=== PATIENT | female | born 1930 | race Caucasian/White ===

== ENCOUNTER 2017-07-04 17:48 | Observation (INO) | payer MEDICARE, BC ==
[~2017-07-04] VITALS: Ht 162.6 cm; Wt 60.1 kg
[2017-07-04] MEDS ORDERED: IOHEXOL 350 MG/ML 10 ML VIAL (for RAD DIAG) IVCONTRAST ONE (17:49)
[2017-07-04 17:54] VITALS: BP 127/61; PULSE 94; RESP 18; TEMP 98.3; O2SAT 96
[2017-07-04] MEDS ORDERED: SODIUM CHLORIDE 0.9% FLUSH 10 ML FLUSH IVF PRN (18:15)
[2017-07-04 18:29] LABS: AUTOMATED NEUTROPHIL # 4.6 TH/MM3 (1.8-7.7); BASOPHIL # 0.1 TH/MM3 (0-0.2); BASOPHIL % 1.3 % (0.0-2.0); EOSINOPHIL # 0.2 TH/MM3 (0-0.4); EOSINOPHIL % 3.3 % (0.0-4.0); HEMATOCRIT 37.8 % (35.0-46.0); HEMO FLAGS DIFF FINAL; LYMPH % 21.7 % (9.0-44.0); LYMPHOCYTE # 1.6 TH/MM3 (1.0-4.8); MEAN CELL VOLUME 93.8 FL (80.0-100.0); MEAN CORPUSCULAR HEMOGLOBIN 32.7 PG (27.0-34.0); MEAN CORPUSCULAR HGB CONC 34.9 % (32.0-36.0); MONO % 11.7 % (0.0-8.0); PLATELET COUNT 204 TH/MM3 (150-450); RED BLOOD COUNT 4.03 MIL/MM3 (4.00-5.30); RED CELL DISTRIBUTION WIDTH 12.8 % (11.6-17.2); WHITE BLOOD COUNT 7.3 TH/MM3 (4.0-11.0)
[2017-07-04 18:44] LABS: APTT (PATIENT) 28.4 SEC (24.3-30.1); INTERNATIONAL NORMALIZED RATIO 1.2 RATIO
[2017-07-04 18:45] LABS: ALT (GPT) 24 U/L (10-53)
[2017-07-04 18:49] LABS: ALKALINE PHOSPHATASE 78 U/L (45-117); TOTAL BILIRUBIN ADULT 0.1 MG/DL (0.2-1.0)
[2017-07-04 18:54] LABS: ANION GAP 7 MEQ/L (5-15); AST (GOT) 23 U/L (15-37); BICARBONATE 29.2 MEQ/L (21.0-32.0); BLOOD UREA NITROGEN 23 MG/DL (7-18); CHLORIDE 105 MEQ/L (98-107); GLOMERULAR FILTRATION RATE 64 ML/MIN (>89); POTASSIUM 4.2 MEQ/L (3.5-5.1); SODIUM (NA) 141 MEQ/L (136-145)
--- NOTE | 2017-07-04 19:15 | PD ---
HPI Chief Complaint: Neuro Symptoms/ Deficits Time Seen by Provider: 18:05 Travel History International Travel<30 days: No Contact w/Intl Traveler<30days: No Traveled to known affect area: No History of Present Illness HPI This is an 86-year-old female who presents to the emergency department having spoken to her son normally at 4:30 PM, when he came home at 5:30 he noticed that she had left arm weakness, a facial droop and had slurred speech, constant , severe. He called the ambulance. Her symptoms persisted for at least 20 minutes with EMS and then subsided upon arrival here. She says she's never had symptoms like this before. She denies any associated headache, fevers or chills. She is otherwise healthy and takes no medicines. [facility] Past Medical History Medical History: Denies Significant Hx Influenza Vaccination: Yes Past Surgical History Surgical History: No Previous Surgery Social History Alcohol Use: No Tobacco Use: No Substance Use: No Allergies-Medications (Allergen,Severity, Reaction): Coded Allergies: No Known Allergies (Unverified , 07/04/17) Reported Meds & Prescriptions Reported Meds & Active Scripts Active No Active Prescriptions or Reported Medications Review of Systems Except as stated in HPI: all other systems reviewed are Neg Physical Exam Narrative GENERAL:Well appearing, no acute distress SKIN: Focused skin assessment warm and dry. HEAD: Atraumatic. Normocephalic. EYES: Pupils equal and round. No injection or drainage. ENT: Moist mucous membranes NECK: Trachea midline. CARDIOVASCULAR: Regular rate and rhythm. No murmur appreciated. RESPIRATORY: Clear to auscultation. Breath sounds equal bilaterally. GASTROINTESTINAL: Abdomen soft, non-tender, nondistended. MUSCULOSKELETAL: No obvious deformities. NEUROLOGICAL: Awake and alert. No obvious cranial nerve deficits. No dysarthria or aphasia. No upper or lower extremity drift. No upper extremity ataxia. Visual hodge intact. PSYCHIATRIC: Appropriate mood and affect; insight and judgment normal. Data Data Last Documented VS Vital Signs Date Time Temp Pulse Resp B/P (MAP) Pulse Ox O2 Delivery O2 Flow Rate FiO2 07/04/17 17:54 98.3 94 18 127/61 (83) 96 Orders Orders Electrocardiogram (07/04/17 18:10) Prothrombin Time / Inr (Pt) (07/04/17 18:10) Act Partial Throm Time (Ptt) (07/04/17 18:10) Complete Blood Count With Diff (07/04/17 18:10) Comprehensive Metabolic Panel (07/04/17 18:10) Troponin I (07/04/17 18:10) Ct Brain W/O Iv Contrast(Rout) (07/04/17 18:10) Cta Brain W Iv Contrast W 3d (07/04/17 18:10) Cta Neck W Iv Contrast W 3d (07/04/17 18:10) Ecg Monitoring (07/04/17 18:10) Iv Access Insert/Monitor (07/04/17 18:10) Oximetry (07/04/17 18:10) Sodium Chloride 0.9% Flush (Ns Flush) (07/04/17 18:15) Labs Laboratory Tests Test 07/04/17 18:10 White Blood Count 7.3 TH/MM3 Red Blood Count 4.03 MIL/MM3 Hemoglobin 13.2 GM/DL Hematocrit 37.8 % Mean Corpuscular Volume 93.8 FL Mean Corpuscular Hemoglobin 32.7 PG Mean Corpuscular Hemoglobin Concent 34.9 % Red Cell Distribution Width 12.8 % Platelet Count 204 TH/MM3 Mean Platelet Volume 9.1 FL Neutrophils (%) (Auto) 62.0 % Lymphocytes (%) (Auto) 21.7 % Monocytes (%) (Auto) 11.7 % Eosinophils (%) (Auto) 3.3 % Basophils (%) (Auto) 1.3 % Neutrophils # (Auto) 4.6 TH/MM3 Lymphocytes # (Auto) 1.6 TH/MM3 Monocytes # (Auto) 0.9 TH/MM3 Eosinophils # (Auto) 0.2 TH/MM3 Basophils # (Auto) 0.1 TH/MM3 CBC Comment DIFF FINAL Differential Comment Prothrombin Time 12.0 SEC Prothromb Time International Ratio 1.2 RATIO Activated Partial Thromboplast Time 28.4 SEC Blood Urea Nitrogen 23 MG/DL Creatinine 0.85 MG/DL Random Glucose 106 MG/DL Total Protein 6.3 GM/DL Albumin 3.0 GM/DL Calcium Level 8.9 MG/DL Alkaline Phosphatase 78 U/L Aspartate Amino Transf (AST/SGOT) 23 U/L Alanine Aminotransferase (ALT/SGPT) 24 U/L Total Bilirubin 0.1 MG/DL Sodium Level 141 MEQ/L Potassium Level 4.2 MEQ/L Chloride Level 105 MEQ/L Carbon Dioxide Level 29.2 MEQ/L Anion Gap 7 MEQ/L Estimat Glomerular Filtration Rate 64 ML/MIN Troponin I LESS THAN 0.02 NG/ML MDM Medical Decision Making Medical Screen Exam Complete: Yes Emergency Medical Condition: Yes Interpretation(s) EKG: Normal sinus rhythm, no ST changes No leukocytosis Electrolytes are reassuring Troponin is normal Coags are normal Differential Diagnosis Ischemic stroke, hemorrhagic stroke, TIA, seizure Narrative Course This is an 86-year-old female who presents to the emergency department having had a significant TIA symptoms on the left side prior to arrival. Here in the emergency department her symptoms completely resolved and she has an NIH stroke scale of 0. She is placed on a monitor and an IV was established. Stroke alert was not called. Labs will be obtained, CT will be obtained and patient will be admitted given high risk symptoms for neurology evaluation. Diagnosis Primary Impression: TIA (transient ischemic attack) Qualified Codes: G45.9 - Transient cerebral ischemic attack, unspecified Admitting Information Admitting Physician Requests: Admit Scripts No Active Prescriptions or Reported Meds Yanira Tony MD Jul 04, 2017 19:15
--- NOTE | 2017-07-04 19:20 | PD ---
Physical Exam Date Seen by Provider: Jul 04, 2017 Time Seen by Provider: 19:19 Narrative Accepted in transfer of care from Dr Tony @ 19:47 GENERAL: Well-developed well-nourished female in no acute distress no respiratory distress; GCS 15 SKIN: Warm and dry. HEAD: Atraumatic. Normocephalic. EYES: Pupils equal and round. No scleral icterus. No injection or drainage. ENT: No nasal bleeding or discharge. Mucous membranes pink and moist. NECK: Trachea midline. No JVD. CARDIOVASCULAR: Regular rate and rhythm. RESPIRATORY: No accessory muscle use. Clear to auscultation. Breath sounds equal bilaterally. GASTROINTESTINAL: Abdomen soft, non-tender, nondistended. Hepatic and splenic margins not palpable. MUSCULOSKELETAL: Extremities without clubbing, cyanosis, or edema. No obvious deformities. NEUROLOGICAL: Awake and alert. No obvious cranial nerve deficits. Motor grossly within normal limits. Five out of 5 muscle strength in the arms and legs. No pronator drift. No limb ataxia. Normal speech. PSYCHIATRIC: Appropriate mood and affect; insight and judgment normal. Data Data Last Documented VS Vital Signs Date Time Temp Pulse Resp B/P (MAP) Pulse Ox O2 Delivery O2 Flow Rate FiO2 07/04/17 19:30 90 20 168/70 (102) 98 Nasal Cannula 2.00 07/04/17 17:54 98.3 Orders Orders Electrocardiogram (07/04/17 18:10) Prothrombin Time / Inr (Pt) (07/04/17 18:10) Act Partial Throm Time (Ptt) (07/04/17 18:10) Complete Blood Count With Diff (07/04/17 18:10) Comprehensive Metabolic Panel (07/04/17 18:10) Troponin I (07/04/17 18:10) Ct Brain W/O Iv Contrast(Rout) (07/04/17 18:10) Cta Brain W Iv Contrast W 3d (07/04/17 18:10) Cta Neck W Iv Contrast W 3d (07/04/17 18:10) Ecg Monitoring (07/04/17 18:10) Iv Access Insert/Monitor (07/04/17 18:10) Oximetry (07/04/17 18:10) Sodium Chloride 0.9% Flush (Ns Flush) (07/04/17 18:15) Iohexol 350 Inj (Omnipaque 350 Inj) (07/04/17 17:49) Admit Order (Ed Use Only) (07/04/17 ) Sales Support Coordinator / Telemetry [id number] (07/04/17 20:20) Diet Heart Healthy (07/05/17 Breakfast) Activity Oob With Assistance (07/04/17 20:20) Notify Dr: Other (07/04/17 20:20) Labs Laboratory Tests Test 07/04/17 18:10 White Blood Count 7.3 TH/MM3 Red Blood Count 4.03 MIL/MM3 Hemoglobin 13.2 GM/DL Hematocrit 37.8 % Mean Corpuscular Volume 93.8 FL Mean Corpuscular Hemoglobin 32.7 PG Mean Corpuscular Hemoglobin Concent 34.9 % Red Cell Distribution Width 12.8 % Platelet Count 204 TH/MM3 Mean Platelet Volume 9.1 FL Neutrophils (%) (Auto) 62.0 % Lymphocytes (%) (Auto) 21.7 % Monocytes (%) (Auto) 11.7 % Eosinophils (%) (Auto) 3.3 % Basophils (%) (Auto) 1.3 % Neutrophils # (Auto) 4.6 TH/MM3 Lymphocytes # (Auto) 1.6 TH/MM3 Monocytes # (Auto) 0.9 TH/MM3 Eosinophils # (Auto) 0.2 TH/MM3 Basophils # (Auto) 0.1 TH/MM3 CBC Comment DIFF FINAL Differential Comment Prothrombin Time 12.0 SEC Prothromb Time International Ratio 1.2 RATIO Activated Partial Thromboplast Time 28.4 SEC Blood Urea Nitrogen 23 MG/DL Creatinine 0.85 MG/DL Random Glucose 106 MG/DL Total Protein 6.3 GM/DL Albumin 3.0 GM/DL Calcium Level 8.9 MG/DL Alkaline Phosphatase 78 U/L Aspartate Amino Transf (AST/SGOT) 23 U/L Alanine Aminotransferase (ALT/SGPT) 24 U/L Total Bilirubin 0.1 MG/DL Sodium Level 141 MEQ/L Potassium Level 4.2 MEQ/L Chloride Level 105 MEQ/L Carbon Dioxide Level 29.2 MEQ/L Anion Gap 7 MEQ/L Estimat Glomerular Filtration Rate 64 ML/MIN Troponin I LESS THAN 0.02 NG/ML [facility] Medical Record Reviewed: Yes Supervised Visit with NAOMI: No Interpretation(s) CBC & BMP Diagram 07/04/17 18:10 Total Protein 6.3 L, Albumin 3.0 L, Calcium Level 8.9, Alkaline Phosphatase 78, Aspartate Amino Transf (AST/SGOT) 23, Alanine Aminotransferase (ALT/SGPT) 24, Total Bilirubin 0.1 L Vital Signs Date Time Temp Pulse Resp B/P (MAP) Pulse Ox O2 Delivery O2 Flow Rate FiO2 07/04/17 19:30 90 20 168/70 (102) 98 Nasal Cannula 2.00 07/04/17 17:54 98.3 94 18 127/61 (83) 96 troponin I: 0.02, wnl Last Impressions Neck CTA [id number]/04/[id number] Signed Impressions: Service Date/Time: Tuesday, July 04, 2017 19:12 - CONCLUSION: 1. No significant luminal narrowing. 2. No evidence of dissection. Joao Mcdonald MD Head CTA [id number] Signed Impressions: Service Date/Time: Tuesday, July 04, 2017 19:12 - CONCLUSION: 1. No evidence of vessel truncation. Joao Mcdonald MD Head CT [id number] Signed Impressions: Service Date/Time: Tuesday, July 04, 2017 19:12 - CONCLUSION: 1. Age-appropriate atrophy. 2. No evidence of acute hemorrhage. Joao Mcdonald MD Differential Diagnosis Accepted in transfer of care from Dr Tony; please refer to her dictation Narrative Course Accepted in transfer of care from Dr Tony; follow up on imaging and admission for TIA @1918 [address] has [address] to [address] @[address] NIH score is 0; patient denies any complaints; senna bedside and states that she is back to her normal and her speech is normal ; patient aware of recommendation for admission for TIA; results of CT brain noncontrast and CTA [place] bolus and CTA of the neck are pending. Physician Communication Physician Communication call placed to [facility] Diagnosis Primary Impression: TIA (transient ischemic attack) Qualified Codes: G45.9 - Transient cerebral ischemic attack, unspecified Scripts No Active Prescriptions or Reported Meds Sonia Andres MD Jul 04, 2017 19:20
[2017-07-04 19:30] VITALS: BP 168/70; PULSE 90; RESP 20; O2SAT 98
--- NOTE | 2017-07-04 20:26 | RADRPT ---
EXAM DATE/TIME: 07/04/2017 19:12 [facility] COMPARISON: No previous studies available for comparison. INDICATIONS : Left sided weakness, facial droop and slurred speech. RADIATION DOSE: 56.35 CTDIvol (mGy) MEDICAL HISTORY : None SURGICAL HISTORY : None. ENCOUNTER: Initial ACUITY: 1 day PAIN SCALE: 0/10 LOCATION: cranial TECHNIQUE: Multiple contiguous axial images were obtained of the head. Using automated exposure control and adj ustment of the mA and/or kV according to patient size, radiation dose was kept as low as reasonably a chievable to obtain optimal diagnostic quality images. DICOM format image data is available electro nically for review and comparison. FINDINGS: CEREBRUM: The ventricles are normal for age. No evidence of midline shift, mass lesion, hemorrhage or acute in farction. No extra-axial fluid collections are seen. POSTERIOR FOSSA: The cerebellum and brainstem are intact. The 4th ventricle is midline. The cerebellopontine angle i s unremarkable. EXTRACRANIAL: The visualized portion of the orbits is intact. SKULL: The calvaria is intact. No evidence of skull fracture. CONCLUSION: 1. Age-appropriate atrophy. 2. No evidence of acute hemorrhage. Joao Mcdonald MD on July 04, 2017 at 20:23 Board Certified Radiologist. This report was verified electronically.
--- NOTE | 2017-07-04 20:27 | RADRPT ---
EXAM DATE/TIME: 07/04/2017 19:12 [facility] COMPARISON: No previous studies available for comparison. INDICATIONS : Patient with left sided weakness, facial droop and slurred speech. IV CONTRAST: 75 cc Omnipaque 350 (iohexol) IV RADIATION DOSE: 14.83 CTDIvol (mGy) MEDICAL HISTORY : None SURGICAL HISTORY : None. ENCOUNTER: Initial ACUITY: 1 day PAIN SCALE: 0/10 LOCATION: cranial TECHNIQUE: Volumetric scanning was performed using a multi-row detector CT scanner. The data was post processed with a variety of visualization algorithms including full volume maximum intensity projection, multi -planar sliding thin slab reformation, curved planar reformation, and surface rendering techniques. Using automated exposure control and adjustment of the mA and/or kV according to patient size, radiat ion dose was kept as low as reasonably achievable to obtain optimal diagnostic quality images. DICO M format image data is available electronically for review and comparison. FINDINGS: There is excellent visualization of the major intracranial arteries out to the second-order branch ve ssels. There is no evidence for aneurysm, vessel truncation or stenosis, and no evidence for vascula r malformation. The right posterior cerebral artery arises from the anterior circulation. Flow is seen in the anteri or communicating artery. CONCLUSION: 1. No evidence of vessel truncation. Joao Mcdonald MD on July 04, 2017 at 20:24 Board Certified Radiologist. This report was verified electronically.
--- NOTE | 2017-07-04 20:29 | RADRPT ---
EXAM DATE/TIME: 07/04/2017 19:12 [facility] COMPARISON: No previous studies available for comparison. INDICATIONS : Patient with left sided weaknes, facial droop and slurred speech. IV CONTRAST: 75 cc Omnipaque 350 (iohexol) IV RADIATION DOSE: 14.83 CTDIvol (mGy) MEDICAL HISTORY : None SURGICAL HISTORY : None. ENCOUNTER: Initial ACUITY: 1 day PAIN SCALE: 0/10 LOCATION: cranial Elevated flow velocities and ICA/CCA ratios have been found to correlate with increased degrees of vessel stenosis, calculated as percentage of diameter relative to a normal segment of distal ICA/CCA. TECHNIQUE: Volumetric scanning was performed using a multirow detector CT scanner. The data was post processed with a variety of visualization algorithms including full-volume maximum intensity projection, multip lanar sliding thin-slab reformation, curved-planar reformation, and surface-rendering techniques. Us ing automated exposure control and adjustment of the mA and/or kV according to patient size, radiatio n dose was kept as low as reasonably achievable to obtain optimal diagnostic quality images. DICOM f ormat image data is available electronically for review and comparison. FINDINGS: AORTIC ARCH: There is a three-vessel origin of the great vessels from the aorta. No evidence of ostial narrowing. RIGHT CAROTID: The common carotid artery is intact. The carotid bulb has a normal configuration without ulceration o r narrowing. The internal carotid artery lumen is smooth without stenosis. The external carotid gustavo ry is intact. Small calcification in the proximal internal carotid artery without luminal narrowing. LEFT CAROTID: The common carotid artery is intact. The carotid bulb has a normal configuration without ulceration or narrowing. The internal carotid artery lumen is smooth without stenosis. The external carotid ar layla is intact. While calcification in the carotid bulb without luminal narrowing. VERTEBRALS: The vertebral arteries have a symmetric diameter. No stenotic lesions are seen. CONCLUSION: 1. No significant luminal narrowing. 2. No evidence of dissection. Joao Mcdonald MD on July 04, 2017 at 20:25 Board Certified Radiologist. This report was verified electronically.
[2017-07-04] MEDS ORDERED: ASPIRIN 81 MG CHEW TAB CHEW ONE (21:00)
[2017-07-04] MEDS ORDERED: DEXTROSE 50% IN WATER 50 ML VIAL(D50) IV PUSH PRN (21:15)
[2017-07-04] MEDS ORDERED: GLUCAGON 1 MG/ML VIAL OTHER PRN (21:15)
[2017-07-04] MEDS ORDERED: SODIUM CHLORIDE 0.9% FLUSH 10 ML FLUSH IV FLUSH PRN (21:15)
[2017-07-04 22:53] VITALS: BP 162/74; PULSE 85; RESP 18; TEMP 98.1; O2SAT 95
[2017-07-05] VITALS (10 sets, daily range): BP systolic 133–162; BP diastolic 62–82; PULSE 68–107; RESP 18–20; TEMP 97.4–98.2; O2SAT 96–98
--- NOTE | 2017-07-05 04:03 | HHI.HP ---
[facility] Primary [facility] Physician Jenae Winters MD Admission Diagnosis TIA Diagnoses: Travel History International Travel<30 Days: No Contact w/Intl Traveler <30 Da: No Traveled to Known Affected Are: No History of Present Illness 86-year-old otherwise healthy female presents in the emergency department after having symptoms consistent with a TIA. The patient reportedly spoke to her son normally at 4:30 and when he came home at 5:30 he noticed that she had left arm weakness, facial droop and slurred speech. EMS was called and the patient's symptoms persisted for 20 minutes and then resolved. She states she's never had symptoms like this before. She does report that she had been feeling "off" for the past several days and had a chest heaviness that is now resolved. Review of Systems Denies fever or chills Denies blurry vision, otorrhea, rhinorrhea Denies sore throat and cough No chest pain, palpitations, shortness of breath No abdominal pain Denies constipation/diarrhea/nausea/vomiting Denies muscle pain/weakness No rashes Past Family Social History Past Medical History None Past Surgical History D&C Reported Medications None Allergies: Coded Allergies: No Known Allergies (Unverified , 07/04/17) Family History Mother with diabetes. Father was taken to [facility] by the [facility] when the patient was a child so she is unaware of his medical history. Social History Rare alcohol use. Denies tobacco or illicit drugs. Physical Exam Vital Signs Vital Signs Date Time Temp Pulse Resp B/P (MAP) Pulse Ox O2 Delivery O2 Flow Rate FiO2 07/05/17 01:02 97.8 75 18 160/71 (100) 97 07/04/17 22:53 98.1 85 18 162/74 (103) 95 07/04/17 21:10 07/04/17 19:30 90 20 168/70 (102) 98 Nasal Cannula 2.00 07/04/17 17:54 98.3 94 18 127/61 (83) 96 Physical Exam GENERAL: female lying in bed SKIN: No rashes, ecchymoses or lesions. Cool and dry. HEAD: Atraumatic. Normocephalic. No temporal or scalp tenderness. EYES: Pupils equal round and reactive. Extraocular motions intact. No scleral icterus. No injection or drainage. ENT: Nose without bleeding, purulent drainage or septal hematoma. Throat without erythema, tonsillar hypertrophy or exudate. Uvula midline. Airway patent. NECK: Trachea midline. No JVD or lymphadenopathy. Supple, nontender, no meningeal signs. CARDIOVASCULAR: Regular rate and rhythm without murmurs, gallops, or rubs. RESPIRATORY: Clear to auscultation. Breath sounds equal bilaterally. No wheezes , rales, or rhonchi. GASTROINTESTINAL: Abdomen soft, non-tender, nondistended. No hepato-splenomegaly , or palpable masses. No guarding. MUSCULOSKELETAL: Extremities without clubbing, cyanosis, or edema. No joint tenderness, effusion, or edema noted. No calf tenderness. Negative Homans sign bilaterally. NEUROLOGICAL: Awake and alert. Cranial nerves II through XII intact. Motor and sensory within normal limits. Five out of 5 muscle strength in all muscle groups. Normal speech. Laboratory Laboratory Tests Test 07/04/17 18:10 White Blood Count 7.3 Red Blood Count 4.03 Hemoglobin 13.2 Hematocrit 37.8 Mean Corpuscular Volume 93.8 Mean Corpuscular Hemoglobin 32.7 Mean Corpuscular Hemoglobin Concent 34.9 Red Cell Distribution Width 12.8 Platelet Count 204 Mean Platelet Volume 9.1 Neutrophils (%) (Auto) 62.0 Lymphocytes (%) (Auto) 21.7 Monocytes (%) (Auto) 11.7 Eosinophils (%) (Auto) 3.3 Basophils (%) (Auto) 1.3 Neutrophils # (Auto) 4.6 Lymphocytes # (Auto) 1.6 Monocytes # (Auto) 0.9 Eosinophils # (Auto) 0.2 Basophils # (Auto) 0.1 CBC Comment DIFF FINAL Differential Comment Prothrombin Time 12.0 Prothromb Time International Ratio 1.2 Activated Partial Thromboplast Time 28.4 Blood Urea Nitrogen 23 Creatinine 0.85 Random Glucose 106 Total Protein 6.3 Albumin 3.0 Calcium Level 8.9 Alkaline Phosphatase 78 Aspartate Amino Transf (AST/SGOT) 23 Alanine Aminotransferase (ALT/SGPT) 24 Total Bilirubin 0.1 Sodium Level 141 Potassium Level 4.2 Chloride Level 105 Carbon Dioxide Level 29.2 Anion Gap 7 Estimat Glomerular Filtration Rate 64 Troponin I LESS THAN 0.02 Result Diagram: 07/04/17180907/04/171809 Caprini VTE Risk Assessment Caprini VTE Risk Assessment: Mod/High Risk (score >= 2) Caprini Risk Assessment Model Point Value = 1 Point Value = 2 Point Value = 3 Point Value = 5 Age 41-60 Minor surgery BMI > 25 kg/m2 Swollen legs Varicose veins or History of unexplained or recurrent spontaneous Oral contraceptives or hormone replacement Sepsis (< 1 month) Serious lung disease, including pneumonia (< 1 month) Abnormal pulmonary function Acute myocardial infarction Congestive heart failure (< 1 month) History of inflammatory bowel disease Medical patient at bed rest Age 61-74 Arthroscopic surgery Major open surgery (> 45 min) Laparoscopic surgery (> 45 min) Malignancy Confined to bed (> 72 hours) Immobilizing plaster cast Central venous access Age >= 75 History of VTE Family history of VTE Factor V Leiden Prothrombin [id number] Lupus anticoagulant Anticardiolipin antibodies Elevated serum homocysteine Heparin-induced thrombocytopenia Other congenital or acquired thrombophilia Stroke (< 1 month) Elective arthroplasty Hip, pelvis, or leg fracture Acute spinal cord injury (< 1 month) Prophylaxis Regimen Total Risk Factor Score Risk Level Prophylaxis Regimen 0-1 Low Early ambulation 2 Moderate Order ONE of the following: *Sequential Compression Device (SCD) *Heparin 5000 units SQ BID 3-4 Higher Order ONE of the following medications: *Heparin 5000 units SQ TID *Enoxaparin/Lovenox 40 mg SQ daily (WT < 150 kg, CrCl > 30 mL/min) *Enoxaparin/Lovenox 30 mg SQ daily (WT < 150 kg, CrCl > 10-29 mL/min) *Enoxaparin/Lovenox 30 mg SQ BID (WT < 150 kg, CrCl > 30 mL/min) AND/OR *Sequential Compression Device (SCD) 5 or more Highest Order ONE of the following medications: *Heparin 5000 units SQ TID (Preferred with Epidurals) *Enoxaparin/Lovenox 40 mg SQ daily (WT < 150 kg, CrCl > 30 mL/min) *Enoxaparin/Lovenox 30 mg SQ daily (WT < 150 kg, CrCl > 10-29 mL/min) *Enoxaparin/Lovenox 30 mg SQ BID (WT < 150 kg, CrCl > 30 mL/min) AND *Sequential Compression Device (SCD) Assessment and Plan Assessment and Plan Assessment/plan: 1. TIA Head CT negative for acute abnormality Head CTA/neck CTA negative Echo pending MRI/MRA brain and carotid ultrasound pending Lipid profile, A1c pending Neurology consulted, appreciate recommendations Aspirin given in the ED FEN Heart healthy diet after bedside swallow evaluation Electrolytes: Monitor and replete when necessary Heparin Case discussed with ER physician at length Hiwot Savage MD Jul 05, 2017 04:03
[2017-07-05 07:20] LABS: AUTOMATED NEUTROPHIL # 5.5 TH/MM3 (1.8-7.7); BASOPHIL % 0.5 % (0.0-2.0); EOSINOPHIL # 0.1 TH/MM3 (0-0.4); EOSINOPHIL % 1.7 % (0.0-4.0); HEMATOCRIT 39.3 % (35.0-46.0); HEMO FLAGS DIFF FINAL; LYMPH % 13.5 % (9.0-44.0); MEAN CELL VOLUME 92.7 FL (80.0-100.0); MEAN CORPUSCULAR HEMOGLOBIN 32.5 PG (27.0-34.0); MONO % 10.9 % (0.0-8.0); NEUT % 73.4 % (16.0-70.0); PLATELET COUNT 211 TH/MM3 (150-450); RED BLOOD COUNT 4.23 MIL/MM3 (4.00-5.30); RED CELL DISTRIBUTION WIDTH 12.8 % (11.6-17.2); WHITE BLOOD COUNT 7.4 TH/MM3 (4.0-11.0)
[2017-07-05 07:36] LABS: ANION GAP 7 MEQ/L (5-15); BICARBONATE 27.9 MEQ/L (21.0-32.0); BLOOD UREA NITROGEN 16 MG/DL (7-18); CHLORIDE 106 MEQ/L (98-107); GLOMERULAR FILTRATION RATE 101 ML/MIN (>89); POTASSIUM 3.6 MEQ/L (3.5-5.1); SODIUM (NA) 141 MEQ/L (136-145)
[2017-07-05 07:39] LABS: HDL CHOLESTEROL 60.9 MG/DL (40.0-60.0); LDL CHOLESTEROL 145 MG/DL (0-99)
[2017-07-05] MEDS: SODIUM CHLOR 0.9% 1000 ML INJ 1,000 ML IV SCH ×2 (07:45→20:12)
[2017-07-05] MEDS: INSULIN ASPART SUPPLEMENTAL SCALE SQ SCH ×4 (08:00→20:36)
[2017-07-05] MEDS ORDERED: GADODIAMIDE PF 287 MG/ML 5 ML VIAL (for RAD MRI) IVCONTRAST ONE (08:23)
--- NOTE | 2017-07-05 09:29 | RADRPT ---
EXAM DATE/TIME: 07/05/2017 08:11 [facility] COMPARISON: No previous studies available for comparison. INDICATIONS : CVA. Episodes of left arm tingling. CONTRAST: 12 cc Omniscan (gadodiamide) IV MEDICAL HISTORY : Glaucoma. SURGICAL HISTORY : None. ENCOUNTER: Subsequent ACUITY: 2 day PAIN SCORE: 0/10 LOCATION: head. TECHNIQUE: Multiplanar, multisequence MRI of the brain was performed both prior to and following the administrat ion of paramagnetic contrast. FINDINGS: CEREBRUM: The ventricles are normal for age. No evidence of midline shift, mass lesion, hemorrhage or acute in farction. No extraaxial fluid collections are seen. The pituitary gland and suprasellar cistern are normal in configuration. WHITE MATTER: No significant signal abnormalities are seen in the white matter. POSTERIOR FOSSA: The cerebellum and brainstem are intact. The 4th ventricle is midline. The cerebellopontine angle is unremarkable. The cerebellar tonsils are normal in position. DIFFUSION IMAGING: No focal areas of restricted diffusion are seen. No evidence of acute infarction. EXTRACRANIAL: The visualized portions of the orbits and paranasal sinuses are unremarkable. POST-CONTRAST: No abnormal areas of parenchymal or dural enhancement. No evidence of blood-brain barrier breakdown. CONCLUSION: Normal examination. Blade Ponce MD on July 05, 2017 at 9:26 Board Certified Radiologist. This report was verified electronically.
--- NOTE | 2017-07-05 10:13 | RADRPT ---
EXAM DATE/TIME: 07/05/2017 08:11 [place] COMPARISON: CTA BRAIN W 3D RECON, July 04, 2017, 19:12. INDICATIONS : CVA. Episodes of left arm tingling. MEDICAL HISTORY : Glaucoma. SURGICAL HISTORY : None. ENCOUNTER: Subsequent ACUITY: 2 day PAIN SCORE: 0/10 LOCATION: head. Please note a normal MRA of the brain does not entirely exclude the possibility of a small aneurysm, nor the possibility of distal intracranial vessel disease. TECHNIQUE: 3D time of flight MRA was performed. Source images, multiplanar STS MIP, and 3D volume MIP reconstru ctions were reviewed. FINDINGS: Anterior circulation: Distal intracranial internal carotid arteries are patent with flow extending to the middle and anteri or cerebral arteries. The right A1 segment is diffusely small in caliber, likely hypoplastic. There i s no evidence for aneurysm, vessel truncation or stenosis, and no evidence for vascular malformation. Posterior circulation: Symmetric distal vertebral arteries with flow extending to basilar artery. 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 There is no evidence for aneurysm, vessel truncation or stenosis, and no evidence for vascular malformation. CONCLUSION: 1. 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 2. Otherwise, unremarkable MRA examination of the brain. Jarett Tobias MD on July 05, 2017 at 9:06 Board Certified Radiologist. This report was verified electronically.
--- NOTE | 2017-07-05 11:34 | MB ---
cc: GERARDO MANCIA M.D. DATE OF CONSULTATION: 07/05/2017 HISTORY OF PRESENT ILLNESS She is a 86-year-old right-handed woman with a remote history of thyroid problems, otherwise very healthy, does not take an aspirin a day and yesterday had some chest heaviness, some shortness of breath and then evidently she had some weakness of the left arm, some slurred speech and facial droop; by her son, although she does not remember anything about that and was brought in the hospital. A CTA of the neck and [id number] was normal as was the CAT scan of the brain did not show any acute problems. She has had some generous sized ventricles. REVIEW OF SYSTEMS She denied any hypertension, diabetes, hypercholesterolemia, NV, CABG, stent, angioplasty, atrial fibrillation, Coumadin, renal, hepatic, pulmonary disease, thyroid disease, lupus, ulcer, cancer, seizure, stroke. SOCIAL HISTORY Nonsmoker, occasionally has a drink. Lives with her son. FAMILY HISTORY Family history is negative for cancer, seizure, stroke as far as she knows. MEDICATIONS None. ALLERGIES NO KNOWN DRUG ALLERGIES. PHYSICAL EXAMINATION VITAL SIGNS: Sinus rhythm on EKG. Afebrile, 76, 18, 168/70 to 133/66. There were no carotid bruits. HEART: Regular rhythm. I do not detect a murmur. NEURO: Pupils are equal. Visual hodge are full. Extraocular movements intact without nystagmus. Face is symmetric with normal sensation. Tongue was midline. There is no drift. She had normal strength in upper and lower extremities bilaterally. Toes are downgoing bilaterally. DTRs are 1+ symmetric throughout. Pinprick was diminished on the right distal lower leg, normal on the left, normal in the hands and face. Not ataxic on [id number]. Speech is fluent. She is not aphasic. She is alert and oriented x3. She gives a good history. LABORATORY DATA CBC is normal. Basic metabolic profile was normal. LFTs normal. Troponin negative. Albumin 3. Coags were normal. IMAGING STUDIES CTA of the neck and [id number] were read as normal. CT of the brain shows generous ventricles, otherwise normal. IMPRESSION Possible TIA. Seems like from the ER report, the symptoms lasted about 20 minutes. For now I would treat her with an aspirin. Check her LDL cholesterol and get an MRI of the brain and echo and Holter. Check a few other blood tests. Overall, I thought she looked well neurologically here. Monitor her tele. If her blood work looks good, if her MRI is negative, if her echo is normal and the Holter is on, she will be discharged on 325 of aspirin a day and if her LDL is increased we could add on a statin. We will check a UA on her also. That needs to be followed up. ADDENDUM She has what appears to be an irregular dark mole on her cheek which she has been followed by dermatology but she has not seen him in several years. It could be a melanoma and I would recommend her to see dermatology at some point in the near future. I did talk to her about this. I defer to the med team on it also. MD WESLEY Zheng/DARIAN /7:42 AM /3:55 PM
[2017-07-05] MEDS: HEPARIN SODIUM - SQ 10,000 UNITS/ML VIAL SQ SCH ×3 (11:35→21:43)
[2017-07-05] MEDS: ASPIRIN EC 325 MG TABEC PO SCH (11:35)
[2017-07-05] MEDS: SODIUM CHLORIDE 0.9% FLUSH 10 ML FLUSH IV FLUSH SCH ×2 (11:35→20:43)
[2017-07-05 11:37] LABS: FREE T4 0.91 NG/DL (0.76-1.46)
[2017-07-05 12:26] LABS: BLOOD, URINE NEG (NEG); GLUCOSE,URINE NEG (NEG); KETONE, URINE NEG (NEG); NITRITE,URINE NEG (NEG); SQUAMOUS EPITHELIAL CELL URINE <1 /hpf (0-5); URINE COLOR LIGHT-YELLOW (YELLW/STRAW)
[2017-07-05 12:27] LABS: COMMENT (UR) CULT NOT INDICATED; CULTURE IF INDICATED CULT NOT INDICATED
[2017-07-05 14:20] LABS: HEMOGLOBIN A1a 1.2 %; HEMOGLOBIN A1b 1.6 %; HEMOGLOBIN Ao 85.1 %; HEMOGLOBIN LA1C 2.1 %; HEMOGLOBIN P3 3.9 %
--- NOTE | 2017-07-05 14:58 | HHI.PR ---
Subjective Remarks Follow up on patient with TIA. She was seen and examined. Patient has no complaints. States she feels well. She denies any complaints of fever, chills , headache, dizziness, numbness/tingling, weakness, nausea, vomiting, difficulty swallowing, abdominal pain, shortness of breath, or chest pain. She is voiding without any difficulties. She denies any diarrhea or constipation. She is witnessed making her bed and ambulating throughout the day in the hallway. Objective Vitals Vital Signs Date Time Temp Pulse Resp B/P (MAP) Pulse Ox O2 Delivery O2 Flow Rate FiO2 07/05/17 12:19 98.2 101 20 144/79 (100) 96 07/05/17 04:50 80 07/05/17 04:46 98.0 76 18 133/66 (88) 98 07/05/17 01:02 97.8 75 18 160/71 (100) 97 07/04/17 22:53 98.1 85 18 162/74 (103) 95 07/04/17 21:10 07/04/17 19:30 90 20 168/70 (102) 98 Nasal Cannula 2.00 07/04/17 17:54 98.3 94 18 127/61 (83) 96 I/O 07/04/17 07/04/17 07/04/17 07/05/17 07/05/17 07/05/17 07:00 15:00 23:00 07:00 15:00 23:00 Intake Total 150 ml Output Total 3 ml Balance 147 ml Intake Oral 150 ml Output Urine Total 3 ml Result Diagram: 07/05/17 0615 07/05/17 0615 Imaging Last Impressions Brain MRI 07/05/17 0745 Signed Impressions: Service Date/Time: June 08:11 - CONCLUSION: Normal examination. Blade Ponce MD Head Magnetic Resonance Angiography 07/05/17 0000 Signed Impressions: Service Date/Time: June 08:11 - CONCLUSION: 1. 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 2. Otherwise, unremarkable MRA examination of the brain. Jarett Tobias MD Neck CTA 07/04/17 1810 Signed Impressions: Service Date/Time: Tuesday, July 04, 2017 19:12 - CONCLUSION: 1. No significant luminal narrowing. 2. No evidence of dissection. Joao Mcdonald MD Head CTA 07/04/171809 Signed Impressions: Service Date/Time: Tuesday, July 04, 2017 19:12 - CONCLUSION: 1. No evidence of vessel truncation. Joao Mcdonald MD Head CT 07/04/171809 Signed Impressions: Service Date/Time: Tuesday, July 04, 2017 19:12 - CONCLUSION: 1. Age-appropriate atrophy. 2. No evidence of acute hemorrhage. Joao Mcdonald MD Objective Remarks GENERAL: Well-developed well-nourished female, INAD. Appears younger than stated age. Awake and alert. SKIN: Cool and dry. (+)dark mole on right side of face with irregular borders HEAD: Atraumatic. Normocephalic. EYES: Extraocular motions intact. No scleral icterus. No injection or drainage. ENT: Nose without bleeding or purulent drainage. Airway patent. MMM. NECK: Trachea midline. CARDIOVASCULAR: Regular rate and rhythm without murmurs, gallops, or rubs. RESPIRATORY: Clear to auscultation. Breath sounds equal bilaterally. No wheezes , rales, or rhonchi. GASTROINTESTINAL: Abdomen soft, non-tender, nondistended. No hepato-splenomegaly , or palpable masses. No guarding. MUSCULOSKELETAL: Extremities without clubbing, cyanosis, or edema. NEUROLOGICAL: Awake and alert. Able to move all extremities spontaneously. No focal neurologic finding appreciated. Normal speech. Medications and IVs Current Medications Medications (Trade) Dose Ordered Sig/Arturo Route Start Time Stop Time Status Last Admin (NS Flush) 2 ml UNSCH PRN IVF 07/04/17 18:15 (NS Flush) 2 ml BID IV FLUSH 07/05/17 09:00 07/05/17 11:35 (NS Flush) 2 ml UNSCH PRN IV FLUSH 07/04/17 21:15 (NovoLOG SUPPLEMENTAL SCALE) 1 ACHS SQ 07/05/17 08:00 (D50w (Vial) Inj) 50 ml UNSCH PRN IV PUSH 07/04/17 21:15 (Glucagon Inj) 1 mg UNSCH PRN OTHER 07/04/17 21:15 (Heparin Inj) 5,000 units Q12HR SQ 07/05/17 09:00 07/05/17 11:35 (Ecotrin Ec) 325 mg DAILY PO 07/05/17 09:00 07/05/17 11:35 Sodium Chloride 1,000 ml @ 75 mls/hr [id number] IV 07/05/17 07:45 A/P Assessment and Plan 1. TIA Head CT negative for acute abnormality Head CTA/neck CTA negative Echo EF 60-65%, no atrial shunt demonstrated, grade 1 diastolic dysfunction MRI brain unremarkable MRA brain hypoplastic right A1 segment. Otherwise, unremarkable MRA examination of the brain. Started on statin for LDL 145. She will need to follow-up in 4-6 weeks with PCP to have liver function tests evaluated. Neurology consulted, appreciate recommendations Continue on aspirin 325 mg daily Holter monitor ordered FEN Heart healthy diet after bedside swallow evaluation Electrolytes: Monitor and replete when necessary Heparin Discharge patient to home Condition on discharge: Improved Heart healthy Diet as tolerated Ad Bonnie activity Rx written: Aspirin 325mg daily, Lipitor 10mg daily Follow-up with primary care physician, inspector repairer to assess facial mole and Dr. Schaffer of neurology Kizzy Brady Jul 05, 2017 14:57
--- NOTE | 2017-07-05 15:24 | EKG ---
Date Performed: 07/04/2017 Time Performed: 18:38:57 PTAGE: 86 years EKG: Sinus rhythm POSSIBLE LEFT ATRIAL ENLARGEMENT BORDERLINE ECG PREVIOUS TRACING : 05/26/1999 10.51 Compared to prior tracing no significant change DOCTOR: Constantin Mahoney Interpretating Date/Time 07/05/2017 15:23:32
--- NOTE | 2017-07-05 16:16 | ECHRPT ---
Indication: cva/tia CONCLUSIONS Normal left ventricular size. The left ventricular systolic function is normal with an estimated ejection fraction in the range of 60-65% No atrial level shunt is demonstrated by color flow Doppler interrogation. Mild mitral valve regurgitation. mitral annulus calcification No aortic valve regurgitation. No aortic valve stenosis. There is mild tricuspid valve regurgitation. The pulmonary valve is not well visualized. BP: / HR: Rhythm: MEASUREMENTS (Male / Female) Normal Values Technical Quality:Good 2D ECHO LV Diastolic Diameter PLAX 3.4 cm 4.2 - 5.9 / 3.9 - 5.3 cm LV Systolic Diameter PLAX 2.5 cm IVS Diastolic Thickness 1.1 cm 0.6 - 1.0 / 0.6 - 0.9 cm LVPW Diastolic Thickness 0.9 cm 0.6 - 1.0 / 0.6 - 0.9 cm LV Relative Wall Thickness 0.6 RV Internal Dim ED PLAX 3.1 cm M-MODE Aortic Root Diameter MM 2.3 cm LA Systolic Diameter MM 2.1 cm LA Ao Ratio MM 0.9 AV Cusp Separation MM 1.3 cm DOPPLER Mitral E Point Velocity 63.2 cm/s Mitral A Point Velocity 105.0 cm/s Mitral E to A Ratio 0.6 LV E' Lateral Velocity 7.4 cm/s Mitral E to LV E' Lateral Ratio 8.5 LV E' Septal Velocity 7.4 cm/s Mitral E to LV E' Septal Ratio 8.5 FINDINGS LEFT VENTRICLE Normal left ventricular size. The left ventricular systolic function is normal with an estimated ejection fraction in the range of 60-65%. Doppler parameters are consistent with impaired left ventricular relaxtion (grade 1 diastolic dysfun ction). RIGHT VENTRICLE Normal right ventricular size and systolic function. LEFT ATRIUM The left atrial size is normal. RIGHT ATRIUM The right atrial size is normal. ATRIAL SEPTUM No atrial level shunt is demonstrated by color flow Doppler interrogation. AORTA The aortic root and proximal ascending aorta are normal in size on limited imaging. MITRAL VALVE Structurally normal mitral valve. Mild mitral valve regurgitation. mitral annulus calcification AORTIC VALVE Trileaflet aortic valve. No aortic valve regurgitation. No aortic valve stenosis. TRICUSPID VALVE Structurally normal tricuspid valve. There is mild tricuspid valve regurgitation. PULMONARY VALVE The pulmonary valve is not well visualized. VESSELS The inferior vena cava is normal in size. PERICARDIUM No pericardial effusion. Roman Felix MD (Electronically Signed) Final Date:05 July 2017 16:15
[2017-07-05] MEDS ORDERED: ATORVASTATIN 10 MG TAB PO ONE (16:45)
[2017-07-05] MEDS ORDERED: LIPI10TA PO (16:50)
[2017-07-05] MEDS ORDERED: ASPI325T33 PO (16:50)
--- NOTE | 2017-07-05 16:56 | HHI.DCPOC ---
Discharge Care Plan Diagnosis: (1) Atypical mole (2) Dyslipidemia (3) TIA (transient ischemic attack) Goals to Promote Your Health * To prevent worsening of your condition and complications * To maintain your health at the optimal level Directions to Meet Your Goals Please follow up with PCP or appliance service representative to have your right sided facial mole evaluated You will need to follow up with Dr. Schaffer of neurology You will need to have your liver function test evaluated in 4-6 weeks after starting Lipitor statin therapy Take your medications as prescribed - Aspirin 325mg daily and Lipitor 10mg daily Follow your dietary instruction Follow activity as directed Keep your appointments as scheduled Take your immunizations and boosters as scheduled If your symptoms worsen call your PCP, if no PCP go to Urgent Care Center or Emergency Room Smoking is Dangerous to Your Health. Avoid second hand smoke Call the 24-hour hour crisis hotline for domestic abuse at Kizzy Brady Jul 05, 2017 16:56
[2017-07-06 00:20] VITALS: BP 120/72; PULSE 78; RESP 18; TEMP 97.7; O2SAT 96
[2017-07-06 04:07] VITALS: BP 136/78; PULSE 90; RESP 18; TEMP 96; O2SAT 97
--- NOTE | 2017-07-06 07:01 | HHI.PR ---
Subjective Remarks sr some confusion Objective Vital Signs Date Time Temp Pulse Resp B/P (MAP) Pulse Ox O2 Delivery O2 Flow Rate FiO2 07/06/17 04:07 96.0 90 18 136/78 (97) 97 07/06/17 00:20 97.7 78 18 120/72 (88) 96 07/05/17 20:31 88 152/82 (105) 07/05/17 20:00 97.4 84 18 162/75 (104) 96 07/05/17 16:51 98.2 68 18 140/62 (88) 96 07/05/17 16:05 75 07/05/17 12:19 98.2 101 20 144/79 (100) 96 07/05/17 12:10 107 07/05/17 09:30 93 I/O 07/05/17 07/05/17 07/05/17 07/06/17 07/06/17 07/06/17 07:00 15:00 23:00 07:00 15:00 23:00 Intake Total 150 ml Output Total 3 ml Balance 147 ml Intake Oral 150 ml Output Urine Total 3 ml # Voids 1 Result Diagram: 07/05/17 0615 07/05/17 0615 Objective Remarks not [facility] knows yr and month and hospital nl gait 5/5 Assessment and Plan Assessment and Plan imp mri echo labs ok ldl inc on statin and asa holter pend sr overnoc did not sleep well last pm only 2 hours confused since episode did start with cp and sob should have cards see and needs cardionet o/p have cards see for this sx and if they clear can dc home i dw son will fu office next week for cardionet and stm issues some sleep deprivation try and dc today so no more confusion if staysa another noc Constantin Schaffer MD Jul 06, 2017 07:01
--- NOTE | 2017-07-06 07:55 | HHI.PR ---
Subjective Remarks Follow up on patient with TIA. Patient seen and examined. Patient planned for discharge yesterday but son informed Dr. Schaffer patient has been having left sided chest pressure and dyspnea which is why he brought her into the hospital. Patient did not report any complaints of chest pain or dyspnea. Dr. Schaffer has cleared patient for discharge today after evaluated by cardiology. Patient with increased confusion over night. Objective Vitals Vital Signs Date Time Temp Pulse Resp B/P (MAP) Pulse Ox O2 Delivery O2 Flow Rate FiO2 07/06/17 04:07 96.0 90 18 136/78 (97) 97 07/06/17 00:20 97.7 78 18 120/72 (88) 96 07/05/17 20:31 88 152/82 (105) 07/05/17 20:00 97.4 84 18 162/75 (104) 96 07/05/17 16:51 98.2 68 18 140/62 (88) 96 07/05/17 16:05 75 07/05/17 12:19 98.2 101 20 144/79 (100) 96 07/05/17 12:10 107 07/05/17 09:30 93 I/O 07/05/17 07/05/17 07/05/17 07/06/17 07/06/17 07/06/17 07:00 15:00 23:00 07:00 15:00 23:00 Intake Total 150 ml Output Total 3 ml Balance 147 ml Intake Oral 150 ml Output Urine Total 3 ml # Voids 1 3 Result Diagram: 07/05/17 0615 07/05/17 0615 Imaging Last Impressions Brain MRI 07/05/17 0745 Signed Impressions: Service Date/Time: June 08:11 - CONCLUSION: Normal examination. Blade Ponce MD Head Magnetic Resonance Angiography 07/05/17 0000 Signed Impressions: Service Date/Time: June 08:11 - CONCLUSION: 1. 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 2. Otherwise, unremarkable MRA examination of the brain. Jarett Tobias MD Neck CTA 07/04/17 1810 Signed Impressions: Service Date/Time: Tuesday, July 04, 2017 19:12 - CONCLUSION: 1. No significant luminal narrowing. 2. No evidence of dissection. Joao Mcdonald MD Head CTA 07/04/171809 Signed Impressions: Service Date/Time: Tuesday, July 04, 2017 19:12 - CONCLUSION: 1. No evidence of vessel truncation. Joao Mcdonald MD Head CT 07/04/171809 Signed Impressions: Service Date/Time: Tuesday, July 04, 2017 19:12 - CONCLUSION: 1. Age-appropriate atrophy. 2. No evidence of acute hemorrhage. Joao Mcdonald MD Objective Remarks GENERAL: Well-developed well-nourished female, INAD. Appears younger than stated age. Awake and alert. Ambulating in the hallway. SKIN: Cool and dry. (+)dark mole on right side of face with irregular borders HEAD: Atraumatic. Normocephalic. EYES: Extraocular motions intact. No scleral icterus. No injection or drainage. ENT: Nose without bleeding or purulent drainage. Airway patent. MMM. NECK: Trachea midline. CARDIOVASCULAR: Regular rate and rhythm without murmurs, gallops, or rubs. RESPIRATORY: Clear to auscultation. Breath sounds equal bilaterally. No wheezes , rales, or rhonchi. GASTROINTESTINAL: Abdomen soft, non-tender, nondistended. No hepato-splenomegaly , or palpable masses. No guarding. MUSCULOSKELETAL: Extremities without clubbing, cyanosis, or edema. NEUROLOGICAL: Awake and alert. Able to move all extremities spontaneously. No focal neurologic finding appreciated. Normal speech. Medications and IVs Current Medications Medications (Trade) Dose Ordered Sig/Arturo Route Start Time Stop Time Status Last Admin (NS Flush) 2 ml UNSCH PRN IVF 07/04/17 18:15 (NS Flush) 2 ml BID IV FLUSH 07/05/17 09:00 07/05/17 11:35 (NS Flush) 2 ml UNSCH PRN IV FLUSH 07/04/17 21:15 (NovoLOG SUPPLEMENTAL SCALE) 1 ACHS SQ 07/05/17 08:00 (D50w (Vial) Inj) 50 ml UNSCH PRN IV PUSH 07/04/17 21:15 (Glucagon Inj) 1 mg UNSCH PRN OTHER 07/04/17 21:15 (Heparin Inj) 5,000 units Q12HR SQ 07/05/17 09:00 07/05/17 21:43 (Ecotrin Ec) 325 mg DAILY PO 07/05/17 09:00 07/05/17 11:35 Sodium Chloride 1,000 ml @ 75 mls/hr [id number] IV 07/05/17 07:45 (Lipitor) 10 mg HS PO 07/06/17 21:00 A/P Assessment and Plan 1. TIA Head CT negative for acute abnormality Head CTA/neck CTA negative Echo EF 60-65%, no atrial shunt demonstrated, grade 1 diastolic dysfunction MRI brain unremarkable MRA brain hypoplastic right A1 segment. Otherwise, unremarkable MRA examination of the brain. Started on statin for LDL 145. She will need to follow-up in 4-6 weeks with PCP to have liver function tests evaluated. Neurology consulted, appreciate recommendations Continue on aspirin 325 mg daily Holter monitor placed but patient removed due to increased confusion last night. 2. Chest pain and dyspnea, r/o ACS Patient scheduled discharged held due to son requesting cardiology consultation Patients son reports pt with c/o left sided chest pain and SOB at onset of symptoms not conveyed by patient Cardiology consulted by neuro, appreciate recommendations. Cleared for discharge from cardiac standpoint troponin less than 0.02 3. Early onset dementia start on Aricept 5mg and Namenda 5mg daily FEN Heart healthy diet Electrolytes: Monitor and replete when necessary Heparin Kizzy Brady Jul 06, 2017 07:55
[2017-07-06] MEDS: INSULIN ASPART SUPPLEMENTAL SCALE SQ SCH (08:00)
[2017-07-06 08:29] VITALS: BP 169/79; PULSE 89; RESP 20; TEMP 97.8; O2SAT 97
[2017-07-06] MEDS ORDERED: MEMANTINE HCL 5 MG TAB PO SCH (09:00)
[2017-07-06] MEDS ORDERED: DONEPEZIL HCL 5 MG TAB PO SCH (09:00)
[2017-07-06] MEDS: SODIUM CHLORIDE 0.9% FLUSH 10 ML FLUSH IV FLUSH SCH (09:00)
[2017-07-06] MEDS: ASPIRIN EC 325 MG TABEC PO SCH (10:07)
[2017-07-06] MEDS: HEPARIN SODIUM - SQ 10,000 UNITS/ML VIAL SQ SCH (10:08)
--- NOTE | 2017-07-06 15:56 | MB ---
cc: DAQUAN JASSO MD DATE OF CONSULTATION: 07/06/2017 REASON FOR CONSULTATION: Ms. Lambert is a 86 white female with no previous cardiac history. She was admitted with left arm weakness, facial droop and slurred speech which resolved after 20 minutes. It was felt that she had substernal chest heaviness but the patient and family do not recall this at this time. She has no dyspnea on exertion or angina. PAST MEDICAL HISTORY: Negative for hypertension, dyslipidemia, diabetes mellitus Coronary artery disease or cerebrovascular accident. MEDICATIONS None. ALLERGIES NONE. SOCIAL HISTORY The patient does not smoke. She drinks alcohol rarely. She is accompanied by her son who is helping her at home. FAMILY HISTORY Negative for heart disease and positive for diabetes mellitus in her mother. REVIEW OF SYSTEMS Review of systems otherwise negative. PHYSICAL EXAMINATION VITAL SIGNS: Blood pressure 116/79, pulse 89 and regular. HEAD, EYES, EARS, NOSE, AND THROAT: Negative. NECK: 2+ carotid upstrokes, No bruits. LUNGS: Clear. HEART: Regular with no murmur, gallop or rub. ABDOMEN: The abdomen is soft, no bruits. EXTREMITIES: The extremities are without edema. 2+ distal Pulses NEUROLOGIC: Grossly nonfocal. ELECTROCARDIOGRAM: EKG was reviewed and showed normal sinus rhythm with normal axis intervals, no acute changes. LABORATORY DATA Hemoglobin 13.7, potassium 3.6, creatinine 0.6. LDL 145, HDL 61. Troponin less than 0.02. DIAGNOSIS 1. TIA. 2. Elevated blood pressure 3. Dyslipidemia 4. Possible chest pain. DISPOSITION: Ms Lambert can be discharged home from cardiac standpoint. She has not had any recent angina or heart failure symptoms. Her LDL is elevated and I recommend to start therapy with statin. I also recommend to continue aspirin as recommended by Dr. Schaffer. Ms. Lambert will be scheduled to followup with me as outpatient in our office after discharge. The plan was discussed with the patient and her son. MD JOSE MANUEL Case/sariah /10:35 AM /3:23 PM [facility]
[2017-07-06] MEDS ORDERED: ATORVASTATIN 10 MG TAB PO SCH (21:00)
--- NOTE | 2017-07-09 10:34 | HM ---
Date Performed: 07/05/2017 Time Performed: 16:02:00 HOOKUP DATE: 07/05/17 04:02:00 PM [facility] ANALYSIS START TIME: 07/05/2017 4:07:00 PM ANALYSIS END TIME: 07/06/2017 12:17:15 PM PATIENT AGE: 86 PATIENT HEIGHT PATIENT WEIGHT DRUG LIST PATIENT DIAGNOSIS TEST NARRATIVE: The patient's average heart rate was 88 BPM. Heart rates greater than 120 B PM were noted 11% of the time. No episodes of bradycardia were noted. No pauses exceeding 2.0 se conds were noted. 28 ventricular ectopics, which represented < 1% of the total beat count, were n oted. The highest ventricular ectopic frequency occurred from 02:00 AM to 03:00 AM Fri. During this time 26 VE(s) occurred. Ventricular ectopics were observed as 28 isolated beat(s) only. No couplet s or runs were noted. Some of the ventricular beats occurred in bigeminal cycles. No supraventri cular ectopics were noted. Multiple episodes of ST depression (defined as -1.0 mm or more) were noted in channel 1. The maximum depression of -2.9 mm occurred at 06:50:00 PM [facility]. Multiple episode s of ST depression (defined as -1.0 mm or more) were noted in channel 2. The maximum depression of -2.5 mm occurred at 06:46:52 PM [facility]. No episodes of ST depression (defined as -1.0 mm or more) were noted in channel 3. patient removed monitor to early, discharged TEST INTERPRETATION: Sinus rhythm Intermittent aberrancy Occasional PVCs Signed by : Isha Hutton
== END 2017-07-06 13:07 | disposition home or self-care (01) ==
LOC: NEPC 17:48 → NEDA 20:22 → NEPGCP 21:04
PROVIDERS: ADMIT Family Medicine; ATTEND Family Medicine
DX: G45.9 Transient cerebral ischemic attack, unspecified (principal); R07.9 Chest pain, unspecified; R06.02 Shortness of breath; E78.5 Hyperlipidemia, unspecified; F03.90 Unspecified dementia, unspecified severity, without behavioral disturbance, psychotic disturbance, mood disturbance, and anxiety; H40.9 Unspecified glaucoma; R29.700 NIHSS score 0; Z72.820 Sleep deprivation
CPT/HCPCS: 70450; 70496; 70498; 70544; 70553; 80048; 80053; 80061; 81001; 82607; 82948; 83036; 84425; 84439; 84443; 84484; 85025; 85610; 85652; 85730; 86038; 92610; 93005; 93225; 93226; 93306; 96372; 97165; 99285; A9579; G0378; G8987; G8988; G8989; G8996; G8997; G8998; J1644; Q9967

== ENCOUNTER 2018-07-02 12:57 | Inpatient (IN) ==
--- NOTE | 2018-07-02 14:39 | ED ---
HPI General Chief complaint: Urogenital-Female Stated complaint: gu complaint Time Seen by Provider: 07/02/18 14:16 Source: patient and family Mode of arrival: ambulatory Limitations: altered mental status History of Present Illness HPI narrative: This 87-year-old female was brought to the emergency department by her friend because she has been having increasing confusion for the past 2-3 months. She had a TIA recently and the friend says she has not been doing well since then. He says that the last 2-3 months she is becoming increasingly confused. She lives in an apartment building with her son. The friend says that she has gotten lost in the building. She has been losing weight. She stopped eating about 2 months ago. She does see Dr. Winters for her pulmonary issues. She has seen a neurologist is not sure who. She does not take any medications except for some eyedrops for glaucoma. She denies any pain or shortness of breath. She does say that she is cold all the time. Related Data Home Medications Medication Instructions Recorded Confirmed betaxolol 1 drp OPHTHALMIC (EYE) BID 07/02/18 07/02/18 latanoprost 1 drp OPHTHALMIC (EYE) QPM 07/02/18 07/02/18 Allergies Allergy/AdvReac Type Severity Reaction Status Date / Time No Known Allergies Allergy Verified 07/02/18 13:34 Review of Systems ROS: all other systems reviewed are negative [facility] Medical History Medical History Glaucoma (Acute) Social History Social History Substance History: No History of Abuse Smoking Status: Former smoker How Often Do You Have a Drink Containing Alcohol: 4 or more times a week Immunization History Tetanus Immunization: Unsure Exam Narrative Exam Narrative: GENERAL: Well-developed female. She arrives with multiple layers of clothes SKIN: Focused skin assessment warm/dry. HEAD: Atraumatic. Normocephalic. EYES: Pupils equal and round. No scleral icterus. No injection or drainage. ENT: No nasal bleeding or discharge. Mucous membranes pink and moist. NECK: Trachea midline. No JVD. CARDIOVASCULAR: Regular rate and rhythm. No murmur appreciated. RESPIRATORY: No accessory muscle use. Clear to auscultation. Breath sounds equal bilaterally. GASTROINTESTINAL: Abdomen soft, non-tender, nondistended. Hepatic and splenic margins not palpable. Limited pelvic was exam was done and there is uterine prolapse to the vaginal introitus. On rectal exam stool is brown and guaiac positive MUSCULOSKELETAL: No obvious deformities. No clubbing. No cyanosis. No edema. NEUROLOGICAL: Awake and alert. She is not oriented to time or place no obvious cranial nerve deficits. Motor grossly within normal limits. Normal speech. PSYCHIATRIC: Limited insight Course Initial Documented Vital Signs Temperature 98.2 F 07/02/18 13:31 Pulse Rate 90 07/02/18 13:31 Respiratory Rate 16 07/02/18 13:31 Blood Pressure 153/67 H 07/02/18 13:31 Pulse Oximetry 98 07/02/18 13:31 Last Documented Vital Signs Temperature 98.2 F 07/02/18 13:31 Pulse Rate 78 07/02/18 14:33 Respiratory Rate 18 07/02/18 14:33 Blood Pressure 134/74 07/02/18 14:33 Pulse Oximetry 96 07/02/18 14:33 Medical Decision Making MDM Narrative Medical decision making narrative: Patient has had loss of appetite and she has an anemia with a hemoglobin of 9.3 the indices are hypochromic microcytic. Rectal exam is positive for occult blood. Patient is also quite confused. CT scan shows enlarged ventricles Medical Screen Exam Complete: Yes Emergency Medical Condition: Yes Differential Diagnosis Differential Diagnosis: Differential includes dementia, Alzheimer's disease, subdural hematoma, malignancy Lab Data Result diagrams: 07/02/18 14:30 07/02/18 14:30 Lab Results 07/02/18 07/02/18 07/02/18 Range/Units 14:30 14:30 14:30 CBC w Diff Slide review pending WBC 8.9 (4.0-11.0) th/mm3 RBC 4.19 (4.00-5.30) mil/mm3 Hgb 9.3 L (11.6-15.3) gm/dL Hct 29.7 L (35.0-46.0) % MCV 70.9 L (80.0-100.0) fL MCH 22.3 L (27.0-34.0) pg MCHC 31.5 L (32.0-36.0) % RDW 18.2 H (11.6-17.2) % Plt Count 310 (150-450) th/mm3 MPV 8.2 (7.0-11.0) fL Neut % (Auto) 82.3 H (16.0-70.0) % Lymph % (Auto) 8.2 L (9.0-44.0) % [place] % (Auto) 9.2 H (0.0-8.0) % Eos % (Auto) 0.2 (0.0-4.0) % Baso % (Auto) 0.1 (0.0-2.0) % Neut # (Auto) 7.4 (1.8-7.7) th/mm3 Lymph # (Auto) 0.7 L (1.0-4.8) th/mm3 [place] # (Auto) 0.8 (0.0-0.9) th/mm3 Eos # (Auto) 0.0 (0.0-0.4) th/mm3 Baso # (Auto) 0.0 (0.0-0.2) th/mm3 Differential Comment . PT 14.2 H (9.8-11.6) sec INR 1.4 Ratio APTT 36.8 H (23.4-31.7) sec Sodium 134 L (136-145) meq/L Potassium 3.2 L (3.5-5.1) meq/L Chloride 96 L (98-107) meq/L Carbon Dioxide 28.0 (21.0-32.0) meq/L Anion Gap 10 (5-15) meq/L BUN 22 H (7-18) mg/dL Creatinine 0.67 (0.50-1.00) mg/dL Estimated GFR 83 L (>89) mL/min Random Glucose 106 (74-106) mg/dL Calcium 9.7 (8.5-10.1) mg/dL Magnesium 1.8 (1.5-2.5) mg/dL Total Bilirubin 0.6 (0.2-1.0) mg/dL AST 52 H (15-37) U/L ALT 27 (10-53) U/L Alkaline Phosphatase 73 (45-117) U/L Troponin I Less than 0.02 L (0.02-0.05) ng/mL B-Natriuretic Peptide (0-100) pg/mL Total Protein 6.0 L (6.4-8.2) g/dL Albumin 2.3 L (3.4-5.0) g/dL Lipase (73-393) U/L TSH 1.270 (0.358-3.740) uIU/mL 07/02/18 07/02/18 Range/Units 14:30 14:30 CBC w Diff WBC (4.0-11.0) th/mm3 RBC (4.00-5.30) mil/mm3 Hgb (11.6-15.3) gm/dL Hct (35.0-46.0) % MCV (80.0-100.0) fL MCH (27.0-34.0) pg MCHC (32.0-36.0) % RDW (11.6-17.2) % Plt Count (150-450) th/mm3 MPV (7.0-11.0) fL Neut % (Auto) (16.0-70.0) % Lymph % (Auto) (9.0-44.0) % [place] % (Auto) (0.0-8.0) % Eos % (Auto) (0.0-4.0) % Baso % (Auto) (0.0-2.0) % Neut # (Auto) (1.8-7.7) th/mm3 Lymph # (Auto) (1.0-4.8) th/mm3 [place] # (Auto) (0.0-0.9) th/mm3 Eos # (Auto) (0.0-0.4) th/mm3 Baso # (Auto) (0.0-0.2) th/mm3 Differential Comment PT (9.8-11.6) sec INR Ratio APTT (23.4-31.7) sec Sodium (136-145) meq/L Potassium (3.5-5.1) meq/L Chloride (98-107) meq/L Carbon Dioxide (21.0-32.0) meq/L Anion Gap (5-15) meq/L BUN (7-18) mg/dL Creatinine (0.50-1.00) mg/dL Estimated GFR (>89) mL/min Random Glucose (74-106) mg/dL Calcium (8.5-10.1) mg/dL Magnesium (1.5-2.5) mg/dL Total Bilirubin (0.2-1.0) mg/dL AST (15-37) U/L ALT (10-53) U/L Alkaline Phosphatase (45-117) U/L Troponin I (0.02-0.05) ng/mL B-Natriuretic Peptide 165 H (0-100) pg/mL Total Protein (6.4-8.2) g/dL Albumin (3.4-5.0) g/dL Lipase 120 (73-393) U/L TSH (0.358-3.740) uIU/mL Imaging Data Radiologist's impression: Chest X-Ray 07/02/18 14:33 CONCLUSION: No acute cardiopulmonary abnormality is identified. Head CT 07/02/18 14:33 CONCLUSION: 1. Ventriculomegaly is noted suggestive of central cerebral atrophy versus hydrocephalus. Clinical correlation is recommended. 2. No acute infarct, acute hemorrhage, midline shift or extra-axial fluid collections are noted. . Discharge Plan Discharge Disposition Patient Disposition: ED Admit(ED Internal Use Only) Discharge Condition Condition: Fair Discharge Details Diagnosis: Anemia due to blood loss, Altered mental status Physicians Team ED Provider: Andrea Guillen Primary Care Provider: Primary Care Moon Alfonso Rxs /Orders / Referrals /Forms Prescriptions: No Action latanoprost 0.005 % Drops 1 drp OPHTHALMIC (EYE) QPM RF: 0 betaxolol 0.5 % Drops 1 drp OPHTHALMIC (EYE) BID RF: 0 Discharge Interventions Interventions: Vital Signs Last Done: 07/02/18 14:33 Status ED Status: With Doctor
[2018-07-02 15:12] LABS: Baso % (Auto) 0.1 % (0.0-2.0); Eos % (Auto) 0.2 % (0.0-4.0); Hematocrit 29.7 % (35.0-46.0); Hemoglobin 9.3 gm/dL (11.6-15.3); Lymph # (Auto) 0.7 th/mm3 (1.0-4.8); Lymph % (Auto) 8.2 % (9.0-44.0); Mean Corpuscular HGB Conc 31.5 % (32.0-36.0); Mean Corpuscular Hemoglobin 22.3 pg (27.0-34.0); Mean Corpuscular Volume 70.9 fL (80.0-100.0); Mean Platelet Volume 8.2 fL (7.0-11.0); Mono # (Auto) 0.8 th/mm3 (0.0-0.9); Mono % (Auto) 9.2 % (0.0-8.0); Neut # (Auto) 7.4 th/mm3 (1.8-7.7); Neut % (Auto) 82.3 % (16.0-70.0); Platelet Count 310 th/mm3 (150-450); Red Blood Count 4.19 mil/mm3 (4.00-5.30); Red Cell Distribution Width 18.2 % (11.6-17.2); White Blood Count 8.9 th/mm3 (4.0-11.0)
--- NOTE | 2018-07-02 15:24 | XR ---
EXAM DATE: 07/02/2018 2:58 PM EST AGE/SEX: 87 years / Female INDICATIONS: Confusion, lower extremity swelling, weight loss. CLINICAL DATA: This is the patient's initial encounter. Patient reports that signs and symptoms have been present for 1 week and indicates a pain score of 0/10. MEDICAL/SURGICAL HISTORY: Transient ischemic attack. None. COMPARISON: POI, XR CHEST PA AND LAT, 06/13/2018. POI, XR CHEST PA AND LAT, 02/20/2018. . FINDINGS: Portable upright AP view of the chest demonstrates a normal size cardiac silhouette. No pleural effus ion, airspace consolidation, or pneumothorax is identified. There is a stable high density probably c alcified 5 mm structure overlying the apex of the right hemithorax. Bones and soft tissues demonstrat e no acute abnormality. CONCLUSION: No acute cardiopulmonary abnormality is identified. Electronically signed by: Enrike Barrett MD Board Certified Radiologist 07/02/2018 3:23 PM EST
[2018-07-02 15:27] LABS: Chloride 96 meq/L (98-107); Potassium 3.2 meq/L (3.5-5.1); Sodium 134 meq/L (136-145)
[2018-07-02 15:30] LABS: Albumin 2.3 g/dL (3.4-5.0); Anion Gap 10 meq/L (5-15); Calcium 9.7 mg/dL (8.5-10.1); Glucose,Random 106 mg/dL (74-106); Magnesium 1.8 mg/dL (1.5-2.5)
[2018-07-02 15:31] LABS: Activated Partial Thrombo Time 36.8 sec (23.4-31.7); Blood Urea Nitrogen 22 mg/dL (7-18); INR 1.4 Ratio; Prothrombin Time 14.2 sec (9.8-11.6)
[2018-07-02 15:33] LABS: Alanine Aminotransferase 27 U/L (10-53)
[2018-07-02 15:34] LABS: Aspartate Aminotransferase 52 U/L (15-37); Glomerular Filtration Rate 83 mL/min (>89)
[2018-07-02 15:36] LABS: Alkaline Phosphatase 73 U/L (45-117)
--- NOTE | 2018-07-02 15:50 | CT ---
EXAM DATE: 07/02/2018 3:46 PM EST AGE/SEX: 87 years / Female INDICATIONS: Altered mental status. Increased confusion for past few months. CLINICAL DATA: This is the patient's initial encounter. Patient reports that signs and symptoms have been present for 3 months and indicates a pain score of 0/10. MEDICAL/SURGICAL HISTORY: . Glaucoma. Abdominal aortic aneurysm repair. RADIATION DOSE: 45.43 CTDI (mGy) COMPARISON: [facility] [place], CT BRAIN W/O CONTRAST, 07/04/2017. [facility] [place], CTA BRAIN W 3D RECON, 07/04/2017. . TECHNIQUE: CT of the head without contrast. Using automated exposure control and adjustment of the mA and/or kV according to patient size, radiation dose was kept as low as reasonably achievable to ob tain optimal diagnostic quality images. DICOM format image data is available electronically for revi ew and comparison. FINDINGS: Cerebrum: Ventriculomegaly is noted suggestive of central cerebral atrophy versus hydrocephalus. Cli nical correlation is recommended. No acute infarct, acute hemorrhage, midline shift or extra-axial fl uid collections are noted. Posterior Fossa: The cerebellum and brainstem are intact. The 4th ventricle is midline. The cerebe llopontine angle is unremarkable. Extracranial: The visualized portion of the orbits is intact. Skull: The calvaria is intact. No evidence of skull fracture. CONCLUSION: 1. Ventriculomegaly is noted suggestive of central cerebral atrophy versus hydrocephalus. Clinical c orrelation is recommended. 2. No acute infarct, acute hemorrhage, midline shift or extra-axial fluid collections are noted. . Electronically signed by: Abelardo Briggs MD Board Certified Radiologist 07/02/2018 3:49 PM EST
[2018-07-02 16:24] LABS: Platelet Estimate Normal (Normal); Platelet Morphology Normal (Normal)
[2018-07-02 16:32] LABS: Bilirubin,Urine Negative (Negative); Clarity,Urine Clear (Clear); Color,Urine Yellow (Yellw/Straw); Glucose,Urine (UA) Negative (Negative); Leukocyte Esterase,Urine Negative (Negative); Nitrite,Urine Negative (Negative); Urobilinogen,Urine 0.2 mg/dL (Less than 2)
[2018-07-02] MEDS ORDERED: Bisacodyl 10 MG Supp RECTAL PRN (16:33)
[2018-07-02 16:41] LABS: Squamous Epithelial Cell,Urine 0-5 /hpf (0-5); WBC,Urine 0-5 /hpf (0-5)
[2018-07-02 16:42] LABS: Hyaline Casts,Urine 0-3 /lpf (0-3); Mucus,Urine Rare /lpf (Occasional)
--- NOTE | 2018-07-02 17:28 | P.HPIM ---
History of Present Illness Primary Care Physician: No Primary Care Physician History of Present Illness: 87 yo F with h/o TIA, glaucoma, who was brought to ER by her family friend(Gely Alejandra--who provided the history) for evaluation of worsening confusion x2 months and weight loss, poor appetite--now refusing to eat. Patient reportedly had been on Memantine for a couple of weeks this year but stopped because it was bursting her head. She has been getting more confused, getting lost within her apartment building. She has been forgetful as well. This has progressively worsened, but notably so in the last 2 months. Patient also has been having poor appetite, recently refusing to eat, and has lost a lot of weight over the last 6 months. Her ankles also noted to be swelling. She has not been walking much, her friend offered her a cane which she refused. Patient has no specific complaints except for some nausea. On presentation to ER, patient noted to be mildly anemic hb 9.3 compared to 10.3 in 02/2018, hypoalbuminemia of 2.3. CT head-ventriculomegaly suggestive of central atrophy vs hydrocephalus. no acute findings noted. ER physician did heme occult test and was incidentally found to be positive. Inpatient Certification Inpatient Certification: I certify that the inpatient services were ordered in accordance with Medicare regulations governing the order. This includes certification that hospital inpatient services are reasonable and necessary and in the case of services not specified as inpatient-only under 42 CFR 419.22(n), that they are appropriately provided as inpatient services in accordance to with the 2-midnight benchmark under 43 CFR 412.3(e) Review of Systems Review of Systems: all other systems reviewed are negative [facility] Medical History Medical History Glaucoma (Acute) Social History Social History Substance History: No History of Abuse Second Hand Smoke Exposure: No Smoking Status: Former smoker Tobacco Type: Cigarettes How Often Do You Have a Drink Containing Alcohol: 2 to 4 times a month Immunization History Tetanus Immunization: Unsure Medications and Allergies Allergies Allergy/AdvReac Type Severity Reaction Status Date / Time levofloxacin AdvReac Hallucinati Verified 07/02/18 18:55 ons Home Medications Medication Instructions Recorded Confirmed Type betaxolol 1 drp OPHTHALMIC (EYE) BID 07/02/18 07/02/18 History latanoprost 1 drp OPHTHALMIC (EYE) QPM 07/02/18 07/02/18 History Active Medications: Active Medications Acetaminophen (Tylenol) 650 mg PO Q4H PRN PRN Reason: Temp > 100.4 Al Hydroxide/Mg Hydroxide (Milk Of Magnesia Liq) 30 ml PO Q12H PRN PRN Reason: Mild Constipation Betaxolol HCl (Betaxolol 0.5% Opth Drops) drop EACH EYE BID SHRUTHI Bisacodyl (Dulcolax Supp) 10 mg RECTAL DAILY PRN PRN Reason: SEVERE CONSITIPATION Lactulose (Lactulose Liq) 30 ml PO DAILY PRN PRN Reason: SEVERE CONSITIPATION Ondansetron HCl (Zofran Inj) 4 mg IV.PUSH Q6H PRN PRN Reason: NAUSEA OR VOMITING Senna/Docusate Sodium (Kalyn-Colace) 1 tab PO BID [facility] Sennosides (Senokot) 17.2 mg PO Q12H PRN PRN Reason: Moderate Constipation Sodium Chloride (Ns Flush) 2 ml IV.FLUSH BID SHRUTHI Sodium Chloride (Ns Flush) 2 ml IV.FLUSH PRN PRN PRN Reason: FLUSH AFTER USING IV ACCESS Physical Exam Vital signs: Last Vital Signs Temp 98.2 F 07/02/18 13:31 Pulse 88 07/02/18 14:44 Resp 18 07/02/18 14:44 BP 141/76 H 07/02/18 14:44 Pulse Ox 96 07/02/18 14:44 Intake & Output 06/30/18 07/01/18 07/02/18 07/03/18 06:59 06:59 06:59 06:59 Output Total 300 / 300 Balance -300 / -300 Weight 45 kg Narrative: GENERAL: elderly woman, cachectic,not in distress. HEENT:not pale,anicteric NECK: No LAD, no JVD CARDIOVASCULAR: Regular rate and rhythm without murmurs, gallops, or rubs. RESPIRATORY: Clear to auscultation. Breath sounds equal bilaterally. No wheezes , rales, or rhonchi. GASTROINTESTINAL: Abdomen nondistended, soft,mild left periumbilical tenderness. Normal active bowel sounds. Firm mobile mass left periumbilical area ,~6cm,extending towards LUQ. MUSCULOSKELETAL: Extremities with 2+ edema at ankles and lower legs lt>rt. NEURO: Alert & Oriented x2 to person(she thinks it's [birth year]ruary 1945), place but not to time and situation. Moves all ext x4. Results Labs CBC & Chem 7: 07/02/18 14:30 12 14:30 Imaging Impressions Chest X-Ray 07/02/18 14:33 CONCLUSION: No acute cardiopulmonary abnormality is identified. Head CT 07/02/18 14:33 CONCLUSION: 1. Ventriculomegaly is noted suggestive of central cerebral atrophy versus hydrocephalus. Clinical correlation is recommended. 2. No acute infarct, acute hemorrhage, midline shift or extra-axial fluid collections are noted. . Caprini VTE Risk Assessment Caprini VTE Risk Assessment: No/Low Risk (score <= 1) Caprini Risk Assessment Model: Point Value = 1 Point Value = 2 Point Value = 3 Point Value = 5 Age 41-60 Minor surgery BMI > 25 kg/m2 Swollen legs Varicose veins or History of unexplained or recurrent spontaneous Oral contraceptives or hormone replacement Sepsis (< 1 month) Serious lung disease, including pneumonia (< 1 month) Abnormal pulmonary function Acute myocardial infarction Congestive heart failure (< 1 month) History of inflammatory bowel disease Medical patient at bed rest Age 61-74 Arthroscopic surgery Major open surgery (> 45 min) Laparoscopic surgery (> 45 min) Malignancy Confined to bed (> 72 hours) Immobilizing plaster cast Central venous access Age >= 75 History of VTE Family history of VTE Factor V Leiden Prothrombin [id number] Lupus anticoagulant Anticardiolipin antibodies Elevated serum homocysteine Heparin-induced thrombocytopenia Other congenital or acquired thrombophilia Stroke (< 1 month) Elective arthroplasty Hip, pelvis, or leg fracture Acute spinal cord injury (< 1 month) Prophylaxis Regimen: Total Risk Factor Score Risk Level Prophylaxis Regimen 0-1 Low Early ambulation 2 Moderate Order ONE of the following: *Sequential Compression Device (SCD) *Heparin 5000 units SQ BID 3-4 Higher Order ONE of the following medications: *Heparin 5000 units SQ TID *Enoxaparin/Lovenox 40 mg SQ daily (WT < 150 kg, CrCl > 30 mL/min) *Enoxaparin/Lovenox 30 mg SQ daily (WT < 150 kg, CrCl > 10-29 mL/min) *Enoxaparin/Lovenox 30 mg SQ BID (WT < 150 kg, CrCl > 30 mL/min) AND/OR *Sequential Compression Device (SCD) 5 or more Highest Order ONE of the following medications: *Heparin 5000 units SQ TID (Preferred with Epidurals) *Enoxaparin/Lovenox 40 mg SQ daily (WT < 150 kg, CrCl > 30 mL/min) *Enoxaparin/Lovenox 30 mg SQ daily (WT < 150 kg, CrCl > 10-29 mL/min) *Enoxaparin/Lovenox 30 mg SQ BID (WT < 150 kg, CrCl > 30 mL/min) AND *Sequential Compression Device (SCD) Assessment and Plan Plan 87 yo F with h/o TIA, glaucoma, who was brought in by her family friend for wt loss, confusion. Worsening confusion--likely worsening dementia, CT head did not show any acute findings, there is ventriculomegaly likely due to brain atrophy. TSH is normal. B12 done recently was normal as well. Likely her symptoms are due to worsening dementia. She was on Memantine before but self discontinued. monitor closely, re-orient. Weight loss/microcytic Anemia- reportedly heme occult was +ve in ER. Hb with a slight decline compared to a couple of months back. appetite is poor. Palpable mass on abdominal exam. -concern for malignancy Obtain CT abdomen/pelvis Hypoalbuminemia-- likely due to protein calory malnutrition-monitor. Mild edema--likely in the setting of malnutrition-elevate lower extremities. monitor closely. DVT ppx--SCD for now given concern for hemo occult +ve.
[2018-07-02] MEDS ORDERED: BETAXOLOL 0.5% EACH EYE SCH (21:00)
[2018-07-02] MEDS ORDERED: OPTH EACH EYE SCH (21:00)
[2018-07-02] MEDS: BETAXOLOL 0.5% EACH EYE SCH (21:57)
[2018-07-02] MEDS: Senna/Docusate Sodium 8.6/50 MG Tablet PO SCH (21:58)
[2018-07-03] MEDS: Melatonin 5 MG Tablet PO PRN ×2 (00:12→20:46)
[2018-07-03] MEDS ORDERED: Diatrizoate Meglum/Diatrizoate Sod Liq 9 ML UDC PO SCH (07:00)
[2018-07-03] MEDS: Senna/Docusate Sodium 8.6/50 MG Tablet PO SCH ×2 (10:24→20:45)
[2018-07-03] MEDS: BETAXOLOL 0.5% EACH EYE SCH ×2 (10:27→20:46)
--- NOTE | 2018-07-03 11:35 | CT ---
EXAM DATE: 07/03/2018 11:18 AM EST AGE/SEX: 87 years / Female INDICATIONS: Poor appetite and weight loss x 2 months. Now refusing to eat. General weakness. Confus ion. CLINICAL DATA: This is the patient's initial encounter. Patient reports that signs and symptoms have been present for 1 week and indicates a pain score of 0/10. MEDICAL/SURGICAL HISTORY: Transient ischemic attack. None. ORAL CONTRAST: Partial prescribed oral contrast ingested. RADIATION DOSE: 4.45 CTDI (mGy) COMPARISON: No prior exams available for comparison. TECHNIQUE: Multiple contiguous axial images were obtained through the abdomen and pelvis following b olus infusion of 80 ml Omnipaque 350 (iohexol) nonionic water-soluble contrast as a single exam dos e. Partial prescribed oral contrast ingested. Using automated exposure control and adjustment of the mA and/or kV according to patient size, radiation dose was kept as low as reasonably achievable to o btain optimal diagnostic quality images. DICOM format image data is available electronically for rev iew and comparison. FINDINGS: Lower Lungs: Small bilateral pleural effusions with adjacent compressive atelectasis are noted. Liver: The liver has a homogeneous density without space-occupying lesion. There is no dilation of th e biliary tree. Spleen: There is possible infiltration or rupture of the spleen which is surrounded by mesenteric ma ss. Pancreas: There is a 2 cm mass in the expected region of the head of the pancreas. Extensive mesente concha mass is noted involving the tail of the pancreas. It is difficult to determine if the mass arises from the pancreas or extends into the region of the tail the pancreas. The main pancreatic duct is m ildly dilated. Kidneys: Normal in size and shape. No evidence of mass or hydronephrosis. Two left renal cysts are n oted measuring 11 mm each. Adrenal Glands: Unremarkable. Aorta: The aorta and proximal iliac vessels are grossly unremarkable without aneurysmal dilation. Bowel/Mesentery: Extensive ill-defined mesenteric mass is noted within the upper abdomen measuring 1 2.3 cm in greatest dimension. Soft tissue masses are also noted within the epicardial fat bilaterally measuring 2.9 cm on the left and 3.7 and 2.6 cm on the right. The findings are suggestive of lymphom a or metastatic lymphadenopathy. Some ascites is noted within the abdomen and pelvis. Uncomplicated c olonic diverticulosis is noted. Abdominal Wall: Intact. Retroperitoneum: Extensive retroperitoneal lymphadenopathy is noted with the payal mass measuring 8. 0 cm transverse by 7.0 cm AP dimension. Retroperitoneal payal mass encircles the renal arteries bilat erally and narrows the left renal vein. Bladder: Mild diffuse urinary bladder wall thickening is noted. Reproductive Organs: No abnormal masses or calcifications seen. Inguinal: The inguinal region is unremarkable without evidence of adenopathy. Bony Structures: Degenerative changes and scoliosis of the lumbar spine are noted. CONCLUSION: 1. Extensive ill-defined mesenteric mass is noted within the upper abdomen measuring 12.3 cm in grea test dimension. Soft tissue masses are also noted within the epicardial fat bilaterally measuring 2.9 cm on the left and 3.7 and 2.6 cm on the right. Extensive retroperitoneal lymphadenopathy is noted w ith the payal mass measuring 8.0 cm transverse by 7.0 cm AP dimension. Retroperitoneal payal mass enc ircles the renal arteries bilaterally and narrows the left renal vein. The findings are suggestive of lymphoma or metastatic lymphadenopathy. 2. Extensive mesenteric mass is noted involving the tail of the pancreas. It is difficult to determi ne if the mass arises from the pancreas or extends into the region of the tail the pancreas. The main pancreatic duct is mildly dilated. 3. 2 cm mass in the expected region of the head of the pancreas. 4. Small bilateral pleural effusions with adjacent compressive atelectasis. 5. Possible infiltration or rupture of the spleen which is surrounded by mesenteric mass. 6. Mild diffuse urinary bladder wall thickening. 7. Two left renal cysts. 8. Degenerative changes and scoliosis of the lumbar spine. Electronically signed by: Abelardo Briggs MD Board Certified Radiologist 07/03/2018 11:34 AM EST
--- NOTE | 2018-07-03 11:58 | P.PNIM ---
Subjective Interval history: patient says she feels ok. does no like the contrast drink. Physical Exam Vital signs: Last Vital Signs Temp 96.5 F L 07/03/18 08:00 Pulse 91 H 07/03/18 08:00 Resp 20 07/03/18 08:00 BP 143/67 H 07/03/18 08:00 Pulse Ox 98 07/03/18 08:00 Intake & Output 07/01/18 07/02/18 07/03/18 07/04/18 06:59 06:59 06:59 06:59 Intake Total 480 / 480 Output Total 300 / 300 Balance -300 / -300 480 / 480 Weight 45.5 kg Narrative: GENERAL: elderly woman, cachectic,not in distress. HEENT:not pale,anicteric NECK: No LAD, no JVD CARDIOVASCULAR: Regular rate and rhythm without murmurs, gallops, or rubs. RESPIRATORY: Clear to auscultation. Breath sounds equal bilaterally. No wheezes , rales, or rhonchi. GASTROINTESTINAL: Abdomen nondistended, soft,mild left periumbilical tenderness. Normal active bowel sounds. Firm mobile mass left periumbilical area ,~6cm,extending towards LUQ. MUSCULOSKELETAL: Extremities with 2+ edema at ankles and lower legs lt>rt. NEURO: Alert & Oriented x2 to person, place but not to time and situation. Moves all ext x4. Results Labs CBC & Chem 7: 07/02/18 14:30 07/04/18 09:40 Imaging Imaging: Impressions Chest X-Ray 07/02/18 14:33 CONCLUSION: No acute cardiopulmonary abnormality is identified. Head CT 07/02/18 14:33 CONCLUSION: 1. Ventriculomegaly is noted suggestive of central cerebral atrophy versus hydrocephalus. Clinical correlation is recommended. 2. No acute infarct, acute hemorrhage, midline shift or extra-axial fluid collections are noted. . Abdomen/Pelvis CT 07/03/18 05:59 CONCLUSION: 1. Extensive ill-defined mesenteric mass is noted within the upper abdomen measuring 12.3 cm in greatest dimension. Soft tissue masses are also noted within the epicardial fat bilaterally measuring 2.9 cm on the left and 3.7 and 2.6 cm on the right. Extensive retroperitoneal lymphadenopathy is noted with the payal mass measuring 8.0 cm transverse by 7.0 cm AP dimension. Retroperitoneal payal mass encircles the renal arteries bilaterally and narrows the left renal vein. The findings are suggestive of lymphoma or metastatic lymphadenopathy. 2. Extensive mesenteric mass is noted involving the tail of the pancreas. It is difficult to determine if the mass arises from the pancreas or extends into the region of the tail the pancreas. The main pancreatic duct is mildly dilated. 3. 2 cm mass in the expected region of the head of the pancreas. 4. Small bilateral pleural effusions with adjacent compressive atelectasis. 5. Possible infiltration or rupture of the spleen which is surrounded by mesenteric mass. 6. Mild diffuse urinary bladder wall thickening. 7. Two left renal cysts. 8. Degenerative changes and scoliosis of the lumbar spine. Assessment and Plan Plan 87 yo F with h/o TIA, glaucoma, who was brought in by her family friend for wt loss, confusion. Worsening confusion--likely worsening dementia, CT head did not show any acute findings, there is ventriculomegaly likely due to brain atrophy. TSH is normal. B12 done recently was normal as well. Likely her symptoms are due to worsening dementia. She was on Memantine before but self discontinued. monitor closely, re-orient. d/w patient's son,says her mother declined over the last 1 month, MRI brain has been ordered. will consult neurology for further evaluation. Weight loss/microcytic Anemia- reportedly heme occult was +ve in ER. Hb with a slight decline compared to a couple of months back. appetite is poor. Palpable mass on abdominal exam. -concern for malignancy - CT abdomen/pelvis results noted multiple masses and lymphadenopathy suggestive of lymphoma vs metastatic disease. ordered MRI brain to eval for mets as well given temporal association in symptoms. will also need CT chest. Oncology has been consulted. I spent 45 minutes discussing the findings with patient's son(Dionne Lambert) who is the POA and healthcare insurance sales agent. Hypoalbuminemia-- likely due to protein calory malnutrition-monitor. Mild edema--likely in the setting of malnutrition-elevate lower extremities. monitor closely. DVT ppx--SCD for now given concern for hemo occult +ve. Progress Note: Quality VTE Deep Vein Thrombosis/Pulmonary Embolism Present on Admission: No
--- NOTE | 2018-07-03 15:54 | ECG ---
Date Performed: 07/02/2018 Time Performed: 15:04:46 PTAGE: 87 years EKG: Sinus rhythm NONSPECIFIC T-WAVE ABNORMALITY Since the previous tracing, no significant change noted BORDERLINE EC G PREVIOUS TRACING : 07/04/2017 18.38 DOCTOR: Miguel Cannon Interpretating Date/Time 07/03/2018 15:52:39
[2018-07-03] MEDS ORDERED: Gadobutrol PF 2 MMOL/2 ML Vial (for RAD) IV.SIG ONE (16:04)
--- NOTE | 2018-07-03 16:31 | MR ---
EXAM DATE: 07/03/2018 3:24 PM EST AGE/SEX: 87 years / Female INDICATIONS: Altered mental status. CLINICAL DATA: This is the patient's subsequent encounter. Patient reports that signs and symptoms h ave been present for 2 days and indicates a pain score of 0/10. MEDICAL/SURGICAL HISTORY: . TIA Hysterectomy. COMPARISON: [facility] [place], MRI BRAIN W & W/O CONTRAST, 07/05/2017. . TECHNIQUE: Multiplanar, multisequence examination of the brain was performed without and with 4.5 ml Gadavist (gadobutrol) contrast as a single exam dose. FINDINGS: Cerebrum: Diffuse cerebral atrophy is again noted. No acute infarct, acute hemorrhage, midline shift or extra-axial fluid collections are noted. White Matter: Mild periventricular and subcortical white matter small vessel ischemic changes are al so noted and stable. Posterior Fossa: The cerebellum and brainstem are intact. The 4th ventricle is midline. The cerebel lopontine angle is unremarkable. The cerebellar tonsils are normal in position. Diffusion Imaging: No focal areas of restricted diffusion are seen. No evidence of acute infarction . Extracranial: The visualized portions of the orbits and paranasal sinuses are unremarkable. Post Contrast: No abnormal areas of parenchymal or dural enhancement. No evidence of blood-brain ba rrier breakdown. CONCLUSION: 1. Stable diffuse cerebral atrophy. 2. Mild periventricular and subcortical white matter small vessel ischemic changes bilaterally. 3. No acute infarct, acute hemorrhage, midline shift or extra-axial fluid collections. 4. No abnormal enhancing lesion noted. Electronically signed by: Abelardo Briggs MD Board Certified Radiologist 07/03/2018 4:29 PM EST
[2018-07-03] MEDS: Dextrose 5%/NaCl 0.45% Inj 1,000 ML IV.CONT SCH (17:15)
[2018-07-03] MEDS: Latanoprost 0.005% Opth Drops 2.5 ML Bottle EACH EYE SCH ×2 (18:16→21:51)
--- NOTE | 2018-07-03 18:41 | MB ---
cc: Everett Jennings MD DATE: 07/03/2018 REQUESTING PHYSICIAN: Hospitalist. REASON FOR CONSULTATION: Evaluation of retroperitoneal lymphadenopathy and anemia. HISTORY OF PRESENT ILLNESS: This is an 87-year-old lady with gradually worsening dementia, brought in by the son for increasing weakness, inability to take care of her at home as the patient was refusing to eat and has been generally gradually going down. The patient lost about 20 pounds in the last 4 months according to the son, who is at the bedside. He takes full care of her at home by himself and has noticed that a year ago, she had a stroke after which her mental status decreased moderately and subsequently over the last 1-2 months, it took a rapid downturn and she has stopped eating and lost more weight according to her. He did not notice any blood in the stool or black stools. She has not had any fevers or night sweats. She is more confused than her usual self, according to the son. REVIEW OF SYSTEMS: Negative for headaches, motor or sensory symptoms. No neck pain or photophobia. No cough, chest pain or shortness of breath, poor appetite, not eating well, but no nausea, vomiting, blood in the stool or black stools. No frequency, urgency or hematuria. PAST MEDICAL HISTORY: Dementia, CVA, glaucoma. SOCIAL HISTORY: Ex-smoker, non-alcohol abuser. No occupational exposure. FAMILY HISTORY: Noncontributory. PHYSICAL EXAMINATION: GENERAL: Thinly built, elderly lady, chronically ill-appearing, in no acute distress. Evidence of weight loss noted. VITAL SIGNS: Stable. She is afebrile. Pallor present. No icterus. No palpable adenopathy in the neck or axilla specifically left supraclavicular lymph not palpable. HEENT: Significant for mild dryness of the oral mucous membranes, but no thrush or tonsillar enlargement. No gum bleeding or hypertrophy. No oropharyngeal lesions. Alert, oriented x2. No spinal tenderness. No meningeal signs. Nonfocal, grossly moving all 4 extremities. No JVD. CARDIOVASCULAR: S1, S2, regular rate and rhythm. LUNGS: Bilaterally clear without crackles or wheeze. ABDOMEN: Flat, soft, nontender with mild fullness in the left paraumbilical area, but no masses or tenderness could be felt easily. No free fluid clinically. No guarding. No distention. EXTREMITIES: No edema or evidence of DVTs. RECTAL: Deferred. LABORATORY DATA: Significant for white count of 8.9, hemoglobin 9.3, hematocrit 29.7, MCV 70.9, platelets 310. Chemistry is normal except potassium of 3.2 and AST of 52. Troponin I less than 0.02. BNP 165. Total protein 6, albumin 2.3. CT abdomen and pelvis 07/03/2018 reviewed, shows extensive ill-defined mesenteric mass in the upper abdomen, measuring 12.3 cm in greatest dimension. Extensive retroperitoneal adenopathy in addition measuring 8 x 7 cm. Extensive mesenteric mass involving the tail of the pancreas and 2 cm mass in the expected region of the head of the pancreas. Small bilateral pleural effusions with adjacent compressive atelectasis. ASSESSMENT AND PLAN: An 87-year-old lady with dementia and recent weight loss, appears to have metastatic pancreatic cancer possibility of other GI primary is less likely and possibility of lymphoma also considered. Unlikely to be an ovarian primary at this age, tissue diagnosis is needed. A CT of the chest is not performed at this time. An MRI of the brain is negative for metastatic disease. I had a detailed discussion with the patient's son, who was at the bedside and advised him of the above possibilities and the need for a tissue diagnosis by biopsy versus supportive care. Mr. Lambert wanted to go ahead with biopsy of the retroperitoneal mass and further decisions regarding therapy may be taken after the biopsy, depending on what it shows. If it is indeed metastatic pancreatic or other GI primary, her ability to tolerate chemo and benefit from that would be minimal and the patient's son was informed of that. On the other hand, if it is a lymphoma, she could be considered for systemic chemotherapy if her general condition improves. All these issues were discussed with the patient's son and he requested a CT-guided biopsy of the mesenteric mass ordered. We will check her iron studies and stool occult blood and start her on iron and obtain a CT-guided biopsy of the mesenteric mass. The patient's son was informed that the biopsy even if performed tomorrow, the result would not be available until middle of next week. He understands and agrees to follow up. Oncology will follow in the hospital as long as needed in the hospital. If she is discharged after the biopsy is performed, we will be happy to follow her up in the office. MD BRITNI Maravilla/mary , 05:11 PM , 05:23 PM RONA
[2018-07-03 19:11] LABS: Activated Partial Thrombo Time 41.3 sec (23.4-31.7); INR 1.5 Ratio; Prothrombin Time 14.9 sec (9.8-11.6)
--- NOTE | 2018-07-03 21:22 | MB ---
cc: Beto Greene MD, PhD DATE: 07/03/2018 REASON FOR CONSULTATION: Mental status change. HISTORY OF PRESENT ILLNESS: Ms. Lambert is an 87-year-old female with a history of dementia, who previously was on memantine but stopped this 2 weeks ago due to side effects. She has been getting more confused, also getting lost within her apartment building. She has had deterioration of her recent memory as well. She was brought to the emergency room. PAST MEDICAL HISTORY: She has a history of dementia, glaucoma. MEDICATIONS: 1. Dulcolax. 2. Tylenol. 3. Lactulose. 4. Xalatan eyedrops. 5. Melatonin. 6. Zofran p.r.n. 7. Senokot. NEUROLOGIC EXAMINATION: VITAL SIGNS: Blood pressure 143/63, pulse is 91, respiratory rate is 18, temperature 96.5 degrees. HIGHER CORTICAL FUNCTION: She is alert. She is disoriented to place and date. Recall 0/3 objects in 3 minutes. Her remote memory is relatively intact. She has quite a bit of delusions. She has anomia. She makes paraphasic errors. Mild apraxia was identified. Speech is fluent. Cranial nerves intact. Motor exam is 5/5 strength of all groups of both upper and lower extremities. There is no drift. Fine motor skills normal. Reflexes are 2+, symmetric in the upper and lower extremities. MRI of the brain shows mild ischemic immobilization, which is chronic. No acute stroke or hemorrhage identified. There is diffuse atrophy. CT brain shows atrophy as well. There is ventriculomegaly due to atrophy. LABORATORY DATA: The white count is 8900, hemoglobin 9.3, hematocrit 29.7%, platelet count 310,000. PT 14.2, INR 1.4, APTT 36.8. Sodium is 134, potassium 3.2, chloride 96, CO2 28. The BUN is 22, creatinine 0.67, GFR is 83, glucose 106, AST is 52, ALT 27. TSH 1.27. UA: The pH is 6, specific gravity 1.020, ketones 15. 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 RECOMMENDATION: Would recommend resuming her Namenda dose at a low dose, 5 mg b.i.d. Beto Greene MD, PhD NAMITA/ugo , 08:54 PM , 09:00 PM
[2018-07-03 23:57] LABS: % Iron Saturation 12.4 % (20-50)
[2018-07-04] LABS: Carcinoembryonic Antigen 4.5 ng/mL (0.2-5.0)
[2018-07-04] MEDS: Dextrose 5%/NaCl 0.45% Inj 1,000 ML IV.CONT SCH (09:37)
[2018-07-04] MEDS: BETAXOLOL 0.5% EACH EYE SCH ×2 (09:38→21:44)
[2018-07-04 10:37] LABS: Chloride 99 meq/L (98-107); Potassium 3.1 meq/L (3.5-5.1); Sodium 135 meq/L (136-145)
[2018-07-04 10:45] LABS: Anion Gap 8 meq/L (5-15); Blood Urea Nitrogen 10 mg/dL (7-18); Calcium 8.7 mg/dL (8.5-10.1); Carbon Dioxide 28.1 meq/L (21.0-32.0); Glomerular Filtration Rate Greater Than 89 mL/min (>89); Glucose,Random 102 mg/dL (74-106)
[2018-07-04] MEDS: Senna/Docusate Sodium 8.6/50 MG Tablet PO SCH ×2 (11:22→21:26)
--- NOTE | 2018-07-04 12:47 | P.DIET ---
Nutritional Evaluation Type of nutrition evaluation: initial (poor appetite and wt loss) Nutrition screening: [facility] [place] Screening comments: 07/03/18 [facility] Poor PO Intake Subjective Subjective Comments: Pt receptive to receiving Ensure. Pt also likes yogurt and would like to receive this w/meals. Pt denies any problem chewing. A review of previous admission here in June 2017 w/a wt of 60.1 kg. Progress note w/pt's son reporting pt w/a 20-lb wt loss over the last 4- months. Objective - Diagnosis Blood Loss, Anemia, AMS - Objective % IBW: 83 Body Weight Used for Calculations: Actual (Admission wt 45.5 kg) Energy Needs - Lower Range (kCal/kg): 30 Energy Needs - Upper Range (kCal/kg): 35 Lower Limit kCal/kg (kCals): 1,365 Upper Limit kCal/kg (kCals): 1,593 Lower Limit Protein Factor (Grams per Kg): 1.2 Upper Limit Protein Factor (Grams per Kg): 1.5 Lower Protein Needs (Protein): 55 Upper Protein Needs (Protein): 68 Dietitian Reviewed in Medical Record: Current diet, Curent medications, Intake & Output, Labs, Medical history Diet Order: Cardiac Oral Diet Intake Amount: Fair 50-75% Objective Comments: PMH includes: Glaucoma, TIA 07/03/18 Abd/Pelvis CT w/extensive ill defined mesenteric mass upper abdomen Albumin 2.4 LBM 07/02 Assessment Assessment: Pt is at nutritional risk r/t poor appetite w/recent unintentional wt loss. Variable PO intake 25% to 75%. Send Ensure TID(= 250 kcal and 9g protein per serving). Send Yogurt w/meals for additional protein. Labs reviewed-low albumin noted. Dietitian following. Recommendations: 1. Send Ensure TID 2. Send Yogurt w/meals for additional protein 3. Dietitian following Dietitian to Monitor: Lab values, Electrolytes, Supplement acceptance, Intake & Output, Diet tolerance, Weight change, PO Intake, Medical course
--- NOTE | 2018-07-04 16:57 | P.PNIM ---
Subjective Interval history: patient says she feels well. Physical Exam Vital signs: Last Vital Signs Temp 97.8 F 07/04/18 12:00 Pulse 85 07/04/18 12:00 Resp 16 07/04/18 12:00 BP 135/60 07/04/18 12:00 Pulse Ox 93 L 07/04/18 12:00 Intake & Output 07/02/18 07/03/18 07/04/18 07/05/18 06:59 06:59 06:59 06:59 Intake Total 1180 / 1180 1000 / 1000 Output Total 300 / 300 Balance -300 / -300 1180 / 1180 1000 / 1000 Weight 45.5 kg 48.4 kg Narrative: GENERAL: elderly woman, cachectic,not in distress. HEENT:not pale,anicteric NECK: No LAD, no JVD CARDIOVASCULAR: Regular rate and rhythm without murmurs, gallops, or rubs. RESPIRATORY: Clear to auscultation. Breath sounds equal bilaterally. No wheezes , rales, or rhonchi. GASTROINTESTINAL: Abdomen nondistended, soft,mild left periumbilical tenderness. Normal active bowel sounds. Firm mobile mass left periumbilical area extending towards LUQ. MUSCULOSKELETAL: Extremities with 2+ edema at ankles and lower legs lt>rt. NEURO: Alert & Oriented x2 to person, place but not to time and situation. Moves all ext x4. Urinary Catheter Management Straight: Cath placed during this visit: yes, but has since been removed by the nurse Insertion date: 07/04/18 Insertion time: 12:15 Removal date: 07/04/18 Removal time: 12:30 Results Labs CBC & Chem 7: 07/02/18 14:30 07/04/18 16:50 Assessment and Plan Plan 87 yo F with h/o TIA, glaucoma, who was brought in by her family friend for wt loss, confusion. Worsening confusion--likely worsening dementia, CT head did not show any acute findings, there is ventriculomegaly likely due to brain atrophy. TSH is normal. B12 done recently was normal as well. MRI brain was negative for metastasis. Likely her symptoms are due to worsening dementia. She was on Memantine before but self discontinued. monitor closely, re-orient. appreciate neurology recs, Namenda started. Weight loss/microcytic Anemia-concern for malignancy. reportedly heme occult was +ve in ER. Hb with a slight decline compared to a couple of months back. appetite is poor. Palpable mass on abdominal exam. - CT abdomen/pelvis results noted multiple masses and lymphadenopathy suggestive of lymphoma vs metastatic disease. MRI brain negative for mets. CT chest ordered. Oncology consult appreciated. Tissue biopsy was ordered for diagnosis, rescheduled for 07/05. Hypoalbuminemia-- likely due to protein calory malnutrition-monitor. Mild edema--likely in the setting of malnutrition-elevate lower extremities. monitor closely. DVT ppx--SCD for now given concern for hemo occult +ve. Progress Note: Quality VTE Deep Vein Thrombosis/Pulmonary Embolism Present on Admission: No
[2018-07-04 17:11] LABS: Chloride 100 meq/L (98-107); Potassium 3.7 meq/L (3.5-5.1); Sodium 134 meq/L (136-145)
[2018-07-04 17:14] LABS: Anion Gap 7 meq/L (5-15); Calcium 8.7 mg/dL (8.5-10.1); Carbon Dioxide 27.5 meq/L (21.0-32.0); Glucose,Random 109 mg/dL (74-106)
[2018-07-04 17:15] LABS: Blood Urea Nitrogen 9 mg/dL (7-18)
[2018-07-04 17:18] LABS: Glomerular Filtration Rate Greater Than 89 mL/min (>89)
[2018-07-04] MEDS: Latanoprost 0.005% Opth Drops 2.5 ML Bottle EACH EYE SCH (21:27)
[2018-07-04] MEDS: Acetaminophen 325 MG Tablet PO PRN (22:45)
[2018-07-05] MEDS: Dextrose 5%/NaCl 0.45% Inj 1,000 ML IV.CONT SCH ×2 (01:27→19:58)
--- NOTE | 2018-07-05 05:09 | P.PNONC ---
Subjective Interval history: Resting comfortably in bed eating dinner. Late note entry. Patient seen at approximately 6 pm on 07/04/2018. Objective Vital Signs/Intake & Output: Vital Signs 07/04/18 08:00 07/04/18 12:00 07/04/18 16:00 Temperature 98.0 F 97.8 F 98.2 F Pulse Rate 82 85 89 Respiratory Rate 15 16 16 Blood Pressure 114/60 135/60 148/64 H Pulse Oximetry 92 L 93 L 93 L 07/04/18 20:00 07/05/18 00:00 Temperature 100.7 F H 99.5 F Pulse Rate 96 H 87 Respiratory Rate 20 20 Blood Pressure 137/62 126/61 Pulse Oximetry 93 L 93 L Intake & Output 07/04/18 07/04/18 07/05/18 06:59 18:59 06:59 Intake Total 500 / 500 1250 / 1250 1000 / 1000 Output Total 600 / 600 450 / 450 Balance 500 / 500 650 / 650 550 / 550 Weight 48.4 kg Intake: IV 1000 / 1000 1000 / 1000 D5W/1/2 NS Inj 1,000 ML @ 60 1000 / 1000 1000 / 1000 mls/hr IV.CONT .[id number] [facility] Rx# :[id number] Oral 500 / 500 250 / 250 Output: Urine 200 / 200 450 / 450 Urine Amount (Catheter) 400 / 400 Straight 400 / 400 Other: # Voids 4 1 Date of Last Bowel Movement 07/02/18 Result Diagrams: 07/02/18 14:30 07/04/18 16:50 Laboratory Results: Laboratory Results - last 24 hr 07/04/18 07/04/18 09:40 16:50 Sodium 135 L 134 L Potassium 3.1 L 3.7 Chloride 99 100 Carbon Dioxide 28.1 27.5 Anion Gap 8 7 BUN 10 9 Creatinine 0.49 L 0.55 Estimated GFR Greater than 89 Greater than 89 Random Glucose 102 109 H Calcium 8.7 D 8.7 Medications: Active Medications Generic Name Dose Route Start Last Admin Trade Name Freq PRN Reason Stop Dose Admin Acetaminophen 650 mg 07/02/18 16:33 07/04/18 22:45 Tylenol PO 650 mg Q4H PRN Administration Temp > 100.4 Dextrose/Sodium Chloride 1,000 mls @ 60 mls/hr 07/03/18 16:19 07/05/18 01:27 D5w/1/2 Ns Inj IV.CONT 60 mls/hr .[id number] SHRUTHI Administration Latanoprost 1 drop 07/03/18 18:00 07/04/18 21:27 Xalatan 0.005% Opth Drops EACH EYE 1 drop HS SHRUTHI Administration Melatonin 5 mg 07/02/18 22:22 07/03/18 20:46 Melatonin PO 5 mg HS PRN Administration INSOMNIA Memantine 5 mg 07/03/18 21:00 07/04/18 21:26 Namenda PO 5 mg BID SHRUTHI Administration Ondansetron HCl 4 mg 07/02/18 16:33 07/03/18 10:22 Zofran Inj IV.PUSH 4 mg Q6H PRN Administration NAUSEA OR VOMITING Pt Own: Betaxolol 0 each 07/02/18 21:00 07/04/18 21:44 Ophth Soln 0.5% EACH EYE 1 each BID SHRUTHI Administration Potassium Chloride 40 meq 07/04/18 12:00 07/04/18 11:57 K-Dur PO 40 meq DAILY SHRUTHI Administration Senna/Docusate Sodium 1 tab 07/02/18 21:00 07/04/18 21:26 Kalyn-Colace PO Not Given BID SHRUTHI Sodium Chloride 2 ml 07/02/18 21:00 07/04/18 21:26 Ns Flush IV.FLUSH Not Given BID SHRUTHI Objective Remarks: GENERAL: thin lady, no distress SKIN: Warm and dry. HEAD: Normocephalic. EYES: No scleral icterus. No injection or drainage. RESPIRATORY: No accessory muscle use. NEUROLOGICAL: No obvious focal deficit. Awake, alert Assessment/Plan - Plan 1. Mesenteric mass, awaiting biopsy. Inpatient oncology service will continue to follow.
[2018-07-05] MEDS ORDERED: fentaNYL Citrate Inj 100 MCG/2 ML Ampul IV.PUSH ONE (08:00)
--- NOTE | 2018-07-05 08:22 | P.RAD ---
Post CT Procedure Prog Note - Procedure Information Procedure Date: 07/05/18 Supervising Radiologist: Jarett Tobias MD Estimated blood loss (mL): 5 Anesthesia: Conscious Sedation - Plan of Activity Patient to Unit: Nursing Unit Patient condition: Good See PACS Report for procedural detail/treatment.
[2018-07-05] MEDS ORDERED: Lidocaine 1%/Epinephrine 1:100,000 Inj 50 ML Vial I-DERMAL ONE (08:47)
--- NOTE | 2018-07-05 09:09 | CT ---
EXAM DATE: 07/05/2018 8:41 AM EST AGE/SEX: 87 years / Female INDICATIONS: Large mesenteric mass. CLINICAL DATA: This is the patient's initial encounter. Patient reports that signs and symptoms have been present for 4 - 6 days and indicates a pain score of 2/10. MEDICAL/SURGICAL HISTORY: Transient ischemic attack. Glaucoma. . RADIATION DOSE: 6.2 CTDI (mGy) COMPARISON: No prior exams available for comparison. TECHNIQUE: Multiple contiguous axial images were obtained through the chest during bolus infusion of 50 ml Omnipaque 350 (iohexol) nonionic water-soluble contrast as a single exam dose. Images were obtained in suspended respiration using multiple row detector helical technique. Using automated exp osure control and adjustment of the mA and/or kV according to patient size, radiation dose was kept a s low as reasonably achievable to obtain optimal diagnostic quality images. DICOM format image data is available electronically for review and comparison. FINDINGS: Bilateral small pleural effusions are present. Tiny peripheral nodules are seen along the pleural carmenza face in both right and left lungs, largest measuring 4 mm. These have a very low index of suspicious for metastatic disease. There is no axillary adenopathy. There is no mediastinal adenopathy. There is no pericardial effusion . Review of bone windows reveals no bony metastatic disease. Extensive retroperitoneal adenopathy is seen. These have been described in detail the CT scan of the abdomen and pelvis. CONCLUSION: 1. Trace small pleural effusions without obvious metastatic disease. 2. Extensive retroperitoneal and intraperitoneal adenopathy seen in the upper abdomen. Electronically signed by: Manuel Mcclellan MD Board Certified Radiologist 07/05/2018 9:08 AM EST
--- NOTE | 2018-07-05 09:10 | CT ---
EXAM DATE: 07/05/2018 8:57 AM EST AGE/SEX: 87 years / Female INDICATIONS: Bulky retroperitoneal adenopathy. CLINICAL DATA: This is the patient's initial encounter. Patient reports that signs and symptoms have been present for 1 day and indicates a pain score of 0/10. MEDICAL/SURGICAL HISTORY: . Glaucoma. . COMPARISON: [facility], CT ABDOMEN & PELVIS W CONTRAST, 07/03/2018. . SEDATION TIME (min): 30 minutes BIOPSY SITE: Left . abdomen MEDICATION(S): 1 mg midazolam (Versed) IV 50 mcg fentanyl (Sublimaze) IV DEVICE(S): 18 gauge Temno core biopsy needle 17 gauge Introducer Four . . PROCEDURE: CT guided Left . abdomen biopsy Conscious sedation with continuous EKG and oximetry monitoring. Prior to the procedure informed consent was obtained. Any appropriate prior imaging studies were rev iewed. Using automated exposure control and adjustment of the mA and/or kV according to patient size, radiat ion dose was kept as low as reasonably achievable to obtain optimal diagnostic quality images. DICOM format image data is available electronically for review and comparison. The site was prepped in a sterile fashion. Full sterile technique was used, including cap, mask, jen rile gloves and gown and a large sterile sheet. Hand hygiene and 2% chlorhexidine and/or betadine/al cohol prep was utilized per protocol for cutaneous antisepsis. The skin and subcutaneous tissues wer e infiltrated with local anesthetic solution. With CT guidance the previously identified target was localized. Biopsy was performed using the presc ribed needle as above. Adequate hemostasis was obtained with compression at the puncture site. Follow-up CT scan reveals no hemorrhage. The patient tolerated the procedure well and there were no complications. The patient was returned to the Radiology Outpatient Unit in stable condition. FINDINGS: Bulky retroperitoneal adenopathy. CONCLUSION: 1. Uncomplicated CT guided biopsy. Electronically signed by: Jarett Tobias MD Board Certified Radiologist 07/05/2018 9:09 AM HEATHER Tinsley
--- NOTE | 2018-07-05 10:09 | P.PNIM ---
Subjective Interval history: no new complaints Physical Exam Vital signs: Last Vital Signs Temp 98.7 F 07/05/18 08:20 Pulse 81 07/05/18 09:41 Resp 16 07/05/18 09:41 BP 111/60 07/05/18 09:41 Pulse Ox 100 07/05/18 09:41 Intake & Output 07/03/18 07/04/18 07/05/18 07/06/18 06:59 06:59 06:59 06:59 Intake Total 1180 / 1180 2250 / 2250 Output Total 300 / 300 1850 / 1850 Balance -300 / -300 1180 / 1180 400 / 400 Weight 45.5 kg 48.4 kg 45.5 kg Narrative: GENERAL: elderly woman, cachectic,not in distress. HEENT:not pale,anicteric NECK: No LAD, no JVD CARDIOVASCULAR: Regular rate and rhythm without murmurs, gallops, or rubs. RESPIRATORY: Clear to auscultation. Breath sounds equal bilaterally. No wheezes , rales, or rhonchi. GASTROINTESTINAL: Abdomen nondistended, soft,mild left periumbilical tenderness. Normal active bowel sounds. Firm mobile mass left periumbilical area extending towards LUQ. MUSCULOSKELETAL: Extremities with 2+ edema at ankles and lower legs lt>rt. NEURO: Alert & Oriented x2 to person, place but not to time and situation. Moves all ext x4. Urinary Catheter Management Straight: Cath placed during this visit: yes, but has since been removed by the nurse Insertion date: 07/04/18 Insertion time: 12:15 Removal date: 07/04/18 Removal time: 12:30 Results Labs CBC & Chem 7: 07/02/18 14:30 07/04/18 16:50 Imaging Imaging: Impressions Abdomen Biopsy CT 07/05/18 00:[address] CONCLUSION: [address] Uncomplicated CT guided biopsy. Chest CT 07/05/18 06:52 CONCLUSION: 1. Trace small pleural effusions without obvious metastatic disease. 2. Extensive retroperitoneal and intraperitoneal adenopathy seen in the upper abdomen. Assessment and Plan Plan 87 yo F with h/o TIA, glaucoma, who was brought in by her family friend for wt loss, confusion. Worsening confusion--likely worsening dementia, CT head did not show any acute findings, there is ventriculomegaly likely due to brain atrophy. TSH is normal. B12 done recently was normal as well. MRI brain was negative for metastasis. Likely her symptoms are due to worsening dementia. She was on Memantine before but self discontinued. monitor closely, re-orient. appreciate neurology recs, Víctora started. Weight loss/microcytic Anemia-concern for malignancy. reportedly heme occult was +ve in ER. Hb with a slight decline compared to a couple of months back. appetite is poor. Palpable mass on abdominal exam. -CT abdomen/pelvis results noted multiple masses and lymphadenopathy suggestive of lymphoma vs metastatic disease. MRI brain negative for mets. CT chest ordered. Oncology consult appreciated. Tissue biopsy was ordered for diagnosis. Biopsy done today appreciate palliative care consult Hypoalbuminemia-- likely due to protein calory malnutrition-monitor. Mild edema--likely in the setting of malnutrition-elevate lower extremities. monitor closely. DVT ppx--SCD for now given concern for hemo occult +ve. Progress Note: Quality VTE Deep Vein Thrombosis/Pulmonary Embolism Present on Admission: No
[2018-07-05] MEDS: Senna/Docusate Sodium 8.6/50 MG Tablet PO SCH ×2 (10:42→21:16)
[2018-07-05] MEDS: BETAXOLOL 0.5% EACH EYE SCH ×2 (10:43→21:16)
[2018-07-05] MEDS: Acetaminophen 325 MG Tablet PO PRN (17:52)
--- NOTE | 2018-07-05 18:14 | P.CONPAL ---
Consult Service: Palliative Care Requesting Physician: Symone Olmos Reason for Consult: a. To assist with evaluation and management of symptoms including: Confusion, weight loss b. To assist medical decision maker(s) with: better understanding of current medical conditions; weighing benefits/burdens of medical treatment options; making medical treatment decisions. Primary Care Provider: No Primary Care Physician History of Present Illness History of Present Illness: Patient is an 87-year-old female who presented to [place] ED on 07/02/2018 for evaluation of progressively increased confusion and weight loss. The patients friend reported the patient had aggressively increasing confusion over the past 2-3 months; the patient has gotten lost in her apartment building. She has been refusing to eat with a reported weight loss of approximately 20 pounds in the past 4 months. Diagnostic data on admission: * Vital signs: Pulse 40, respirations 16, BP 153/67, oxygen saturation 98% on RA , oral temp 98.2 * WBC 8.9, hemoglobin 9.3, hematocrit 29.7, platelets 310, neutrophils 82.3% PT : 14.2, INR 1.4, APTT 36.8 * Sodium: 134, potassium 3.2, chloride 96, carbon dioxide 28.0, glucose 106, calcium 9.7, magnesium 1.8 BUN: 22, creatinine 0.67, GFR 83 * Total bilirubin: 0.6, AST 52, ALT 27, alkaline phosphatase 73 * Troponin: <0.02, BNP: 165, Total protein: 6.0, albumin 2.3, TSH: 1.270 * Urinalysis within normal limits * Chest x-ray showed no acute cardio or pulmonary abnormalities * CT head revealed ventriculomegaly suggesting central cerebral atrophy versus hydrocephalus. Clinical correlation recommended. No acute infarct, acute hemorrhage, midline shift or extra-axial fluid collections were noted. * Hemoccult positive stool. * Patient had a palpable abdominal mass on exam, concerning for malignancy. * CT abdomen showed: extensive ill-defined mesenteric mass in the upper abdomen measuring 12.3 cm in its greatest dimension. Soft tissue masses were noted within the epicardial fat bilaterally measuring 2.9 cm on the left and 3.7 and 2.6 cm on the right. Extensive retroperitoneal lymphadenopathy noted with the payal mass measuring 8.0 cm transverse by 7.0 cm AP dimension. Retroperitoneal payal mass encircles the renal artery arteries bilaterally and narrows the left renal vein. The findings are suggestive of lymphoma or metastatic lymphadenopathy. Extensive mesenteric mass noted involving the tail of the pancreas. It is difficult to determine if the mass arises from the pancreas or extends into the region of the pancreas tail. The main pancreatic duct is mildly dilated. 2 cm mass in the expected region of the head of the pancreas Small bilateral pleural effusions with adjacent compressive atelectasis Possible infiltration or rupture of spleen which is surrounded by mesenteric mass. Mild diffuse urinary bladder wall thickening, 2 left renal cysts Degenerative changes and scoliosis of the lumbar spine * An MRI of the brain was negative for metastatic disease. Oncology was consulted. Dr. Jennings evaluated the patient and discussed treatment options with the patient's son. I.e. diagnostic biopsy versus supportive care. The patient's son wanted to proceed with the biopsy of the retroperitoneal mass. If the patient is found to have metastatic pancreatic or other GI primary, her ability to tolerate or benefit from treatment would be limited. On the other hand, if she is found to have a lymphoma she could benefit from systemic chemotherapy. CT-guided biopsy was completed on 2017. She has lost weight and currently showed signs of protein calorie malnutrition with albumin of 2.3. When seen in 2017 she weighed 132 pounds, however on this admission weight 99 pounds. Neurology was consulted to evaluate the patient. Apparently the patient has a history of dementia. She was previously on memantadine but it was stopped approximately 2 weeks ago due to side effects. Patient was noted to have diffuse cognitive changes on her examination. Dr. Greene made recommendations to resume Namenda at a low dose, 5 mg 2 times daily. Patient seen resting quietly in bed, watching TV. She states that she came to the hospital to bring friends here who needed care and she could not leave them here without transport. She notes that she does have a and elderly parents at home. She stated the age of her parents as being in their 70s and states she has small children at home. History is clearly unreliable. Past medical history: TIA; hypertension; dyslipidemia, glaucoma, CVA, dementia Past surgical history: D&C Family history: Mother with diabetes Father's history unknown Psychosocial history: Patient lives with her son. Her father was taken to [facility] by the [place] when the patient was a child. Rare alcohol consumption Previous smoker Denies illicit drugs . Function/Cognitive Trajectory: Patient's appetite has been declining and she has been experiencing increasing confusion over the past 2-3 months. She is gotten lost in her apartment building and refusing to eat. She currently lives with her son. . Review of Systems Constitutional: Reports weight loss Neurologic: Reports confusion PMFSH - History History Provided By: Patient - Medical History Medical History: Medical History (Last Reviewed 07/05/18 @ 16:31 by Sandrita Lamb) Glaucoma - Tobacco History Second Hand Smoke Exposure: No Smoking Status: Former smoker Tobacco Type: Cigarettes - Alcohol History How Often Do You Have a Drink Containing Alcohol: 2 to 4 times a month - Substance Use History Substance History: No History of Abuse - Immunization History Tetanus Immunization: Unsure Hx Influenza Vaccine This Season: No Medications and Allergies Active Medications: Active Medications Acetaminophen (Tylenol) 650 mg PO Q4H PRN PRN Reason: Temp > 100.4 Last Admin: 07/04/18 22:45 Dose: 650 mg Al Hydroxide/Mg Hydroxide (Milk Of Magnesia Liq) 30 ml PO Q12H PRN PRN Reason: Mild Constipation Bisacodyl (Dulcolax Supp) 10 mg RECTAL DAILY PRN PRN Reason: SEVERE CONSITIPATION Dextrose/Sodium Chloride (D5w/1/2 Ns Inj) 1,000 mls @ 60 mls/hr IV.CONT .[id number] [facility] Last Admin: 07/05/18 01:27 Dose: 60 mls/hr Lactulose (Lactulose Liq) 30 ml PO DAILY PRN PRN Reason: SEVERE CONSITIPATION Latanoprost (Xalatan 0.005% Opth Drops) 1 drop EACH EYE HS [facility] Last Admin: 07/04/18 21:27 Dose: 1 drop Melatonin (Melatonin) 5 mg PO HS PRN PRN Reason: INSOMNIA Last Admin: 07/03/18 20:46 Dose: 5 mg Memantine (Namenda) 5 mg PO BID [facility] Last Admin: 07/05/18 10:42 Dose: 5 mg Ondansetron HCl (Zofran Inj) 4 mg IV.PUSH Q6H PRN PRN Reason: NAUSEA OR VOMITING Last Admin: 07/03/18 10:22 Dose: 4 mg Pt Own: Betaxolol (Ophth Soln 0.5%) 0 each EACH EYE BID [facility] Last Admin: 07/05/18 10:43 Dose: 1 each Potassium Chloride (K-Dur) 40 meq PO DAILY [facility] Last Admin: 07/05/18 10:42 Dose: 40 meq Senna/Docusate Sodium (Kalyn-Colace) 1 tab PO BID [facility] Last Admin: 07/05/18 10:42 Dose: 1 tab Sennosides (Senokot) 17.2 mg PO Q12H PRN PRN Reason: Moderate Constipation Sodium Chloride (Ns Flush) 2 ml IV.FLUSH BID [facility] Last Admin: 07/05/18 10:43 Dose: Not Given Sodium Chloride (Ns Flush) 2 ml IV.FLUSH PRN PRN PRN Reason: FLUSH AFTER USING IV ACCESS Allergies Allergy/AdvReac Type Severity Reaction Status Date / Time levofloxacin AdvReac Hallucinati Verified 07/02/18 18:55 ons Home Medications Medication Instructions Recorded Confirmed Type betaxolol 1 drp OPHTHALMIC (EYE) BID 07/02/18 07/02/18 History latanoprost 1 drp OPHTHALMIC (EYE) QPM 07/02/18 07/02/18 History Advance Directives Living Will: Unknown Physical Exam Vital Signs: Vital Signs - 24 hr 07/04/18 20:00 07/05/18 00:00 07/05/18 04:00 Temperature 100.7 F H 99.5 F 96.2 F L Pulse Rate 96 H 87 87 Respiratory Rate 20 20 20 Blood Pressure 137/62 126/61 137/67 Pulse Oximetry 93 L 93 L 93 L 07/05/18 08:20 07/05/18 08:30 07/05/18 08:45 Temperature 98.7 F Pulse Rate 90 89 85 Respiratory Rate 16 16 16 Blood Pressure 112/58 L 114/61 114/61 Pulse Oximetry 92 L 95 95 07/05/18 09:15 07/05/18 09:41 07/05/18 12:00 Temperature 97.6 F Pulse Rate 83 81 93 H Respiratory Rate 16 16 16 Blood Pressure 112/58 L 111/60 128/74 Pulse Oximetry 100 100 96 07/05/18 16:00 Temperature 97.0 F L Pulse Rate 97 H Respiratory Rate 16 Blood Pressure 138/65 Pulse Oximetry 97 I&O: Intake & Output 07/03/18 07/04/18 07/05/18 07/06/18 06:59 06:59 06:59 06:59 Intake Total 1180 / 1180 2250 / 2250 720 / 720 Output Total 300 / 300 1850 / 1850 Balance -300 / -300 1180 / 1180 400 / 400 720 / 720 Weight 100 lb 4.965 oz 106 lb 11.26 oz 100 lb 4.965 oz Physical Exam: CONSTITUTIONAL/GENERAL: This is a thin, elderly female, sitting up in bed in no acute distress. TUBES/LINES/DRAINS: PIV SKIN: No jaundice, rashes, or lesions. Ecchymoses on upper extremities. No wounds seen anteriorly. Skin temperature appropriate. Not diaphoretic. HEAD: Atraumatic. Normocephalic. EYES: Pupils equal and round and reactive. Extraocular motions intact. No scleral icterus. No injection or drainage. Fundi not examined. ENT: Hearing grossly normal. Nose without bleeding or purulent drainage. Throat without visible erythema, exudates, masses, or lesions. NECK: Trachea midline. Supple, nontender. No palpable thyroid enlargement or nodularity. CARDIOVASCULAR: Regular rate and rhythm without murmurs, gallops, or rubs. No JVD. Peripheral pulses symmetric. RESPIRATORY/CHEST: Symmetric, unlabored respirations. Clear to auscultation. Breath sounds equal bilaterally. No wheezes, rales, or rhonchi. GASTROINTESTINAL: Abdomen soft, minimally tender around firm, mobile, left mass in the umbilical area. Positive bowel sounds. GENITOURINARY: Without palpable bladder distension. MUSCULOSKELETAL: Extremities without clubbing or cyanosis, 2+ dependent edema. No joint tenderness or effusion noted. No calf tenderness. No mottling. LYMPHATICS: No palpable cervical or supraclavicular adenopathy. NEUROLOGICAL: Awake and alert. Motor and sensory grossly within normal limits. Confused, oriented to self, knows she is in the hospital, but not that she is a patient. Moves all extremities. PSYCHIATRIC: No obvious anxiety/depression. no apparent hallucinations or other psychotic thought process. . Diagnostic Tests Laboratory: Laboratory Results - last 72 hr 07/03/18 07/03/18 07/03/18 18:30 18:30 18:30 PT INR APTT Sodium Potassium Chloride Carbon Dioxide Anion Gap BUN Creatinine Estimated GFR Random Glucose Calcium Iron 22 L TIBC 178 L % Saturation 12.4 L Carcinoembryonic Ag 4.5 CA 19-9 Antigen 9.3 Vitamin B12 1142 H 07/03/18 07/04/18 07/04/18 18:45 09:40 16:50 PT 14.9 H INR 1.5 APTT 41.3 H Sodium 135 L 134 L Potassium 3.1 L 3.7 Chloride 99 100 Carbon Dioxide 28.1 27.5 Anion Gap 8 7 BUN 10 9 Creatinine 0.49 L 0.55 Estimated GFR Greater than 89 Greater than 89 Random Glucose 102 109 H Calcium 8.7 D 8.7 Iron TIBC % Saturation Carcinoembryonic Ag CA 19-9 Antigen Vitamin B12 Result Diagrams: 07/02/18 14:30 07/04/18 16:50 Imaging: Chest X-Ray 07/02/18 14:33 CONCLUSION: No acute cardiopulmonary abnormality is identified. Head CT 07/02/18 14:33 CONCLUSION: 1. Ventriculomegaly is noted suggestive of central cerebral atrophy versus hydrocephalus. Clinical correlation is recommended. 2. No acute infarct, acute hemorrhage, midline shift or extra-axial fluid collections are noted. . Head MRI 07/03/18 00:00 CONCLUSION: 1. Stable diffuse cerebral atrophy. 2. Mild periventricular and subcortical white matter small vessel ischemic changes bilaterally. 3. No acute infarct, acute hemorrhage, midline shift or extra-axial fluid collections. 4. No abnormal enhancing lesion noted. Abdomen/Pelvis CT 07/03/18 05:59 CONCLUSION: 1. Extensive ill-defined mesenteric mass is noted within the upper abdomen measuring 12.3 cm in greatest dimension. Soft tissue masses are also noted within the epicardial fat bilaterally measuring 2.9 cm on the left and 3.7 and 2.6 cm on the right. Extensive retroperitoneal lymphadenopathy is noted with the payal mass measuring 8.0 cm transverse by 7.0 cm AP dimension. Retroperitoneal payal mass encircles the renal arteries bilaterally and narrows the left renal vein. The findings are suggestive of lymphoma or metastatic lymphadenopathy. 2. Extensive mesenteric mass is noted involving the tail of the pancreas. It is difficult to determine if the mass arises from the pancreas or extends into the region of the tail the pancreas. The main pancreatic duct is mildly dilated. 3. 2 cm mass in the expected region of the head of the pancreas. 4. Small bilateral pleural effusions with adjacent compressive atelectasis. 5. Possible infiltration or rupture of the spleen which is surrounded by mesenteric mass. 6. Mild diffuse urinary bladder wall thickening. 7. Two left renal cysts. 8. Degenerative changes and scoliosis of the lumbar spine. Abdomen Biopsy CT 07/05/18 00:00 CONCLUSION: 1. Uncomplicated CT guided biopsy. Chest CT 07/05/18 06:52 CONCLUSION: 1. Trace small pleural effusions without obvious metastatic disease. 2. Extensive retroperitoneal and intraperitoneal adenopathy seen in the upper abdomen. Procedures: 07/05/2018: Abdomen biopsy . Patient/Family Conference Present at Family Conference: Left message for her son, pending return call back to discuss goals of care, palliative care purpose and focus and the below listed items. . Issues Discussed: * Palliative care role, purpose, approach * Additional medical, psychosocial, and spiritual history * Patients general health, functional status, and cognitive changes in the months leading up to the current hospitalization * Patient/family understanding of the current medical problems * Patient/family understanding of prognosis * Patients goals of care as best understood from advance directives and/or conversations and/or values * Current medical treatment options and benefits/burdens of those options * Likely scenarios comparing ongoing aggressive care with a transition to comfort measures only * Questions answered to the best of my ability * Palliative care contact information provided Assessment and Plan Pertinent Non-Medical Issues: Psychosocial: She lives with her son. It is noted that her father was taken to [facility] by the [place] when the patient was a child. Spiritual: [employer]communication [employer]er available. Legal: No advance directives available at this time. Ethical issues impacting care: None noted. . Important Contacts: Son: Celestino Lambert . Prognosis: Her prognosis is guarded. Biopsy is pending but suspected pancreatic or other GI primary metastatic neoplasm versus lymphoma. Given her cachexia, age and dementia it is not felt that she would tolerate chemotherapy or radiation for metastatic neoplasm well per oncology notation, but if lymphoma, could possibly benefit from systemic chemotherapy. Pending biopsy for further prognostication. . Code Status: Full Code Plan: PLAN: Legal decision maker: At this time the patient is not capacitated for decision-making. No advance directives are available at this time. Per [place] statutes her son would be the decision maker by proxy. Goals: To be determined CODE STATUS: FULL CODE SYMPTOMS: * Confusion: At this time she is oriented only to herself and partially oriented to her surroundings. She tells me that she just laid down in bed and is waiting for her friends to be ready to discharge. She denies any symptoms at this time. MRI of the brain did not show metastasis to the brain. She does have a baseline level dementia and has been started on Namenda by neurology. No further recommendations at this time. * Weight loss: When seen in the hospital 1 year ago on 07/05/2017 her weight was 132 pounds. Her weight today, exactly 1 year later, is 100 pounds. She has reportedly not been eating and appears cachectic. Whether this is related to the dementia or potential malignancy is not known at this time. Ensure has been provided. No further recommendations at this time. Palliative care will continue to follow the patient during hospital course as condition evolves, to assist patient/decision-maker with understanding of their medical conditions, weighing benefits/burdens of treatment options, for clarification of goals of treatment. Additionally will assist with any symptoms of palliative concern. . Appreciation Thank you for the opportunity to participate in the care of Claudia Lambert. Attestation Attestation: To help prompt me to consider important information that might be impacting today's encounter and assessment, information from prior notes written by myself or my colleagues may have been "brought forward" into today's note. My signature on this note, however, is an attestation that I personally performed the exam, history, and/or decision-making noted today, and, unless otherwise indicated, the interactions with patient, family, and staff as well as the review of records all occurred today. I also attest that the listed assessment and stated plan reflect my best clinical judgment today based on the combination of historical information, prior notes, and today's exam/ interactions. When time spent is documented, it refers only to time spent today by the signer, or if indicated, combined time spent today by collaborating physician/nurse practitioner. .
[2018-07-05] MEDS: Latanoprost 0.005% Opth Drops 2.5 ML Bottle EACH EYE SCH (21:16)
[2018-07-05] MEDS: Melatonin 5 MG Tablet PO PRN (21:16)
[2018-07-06] MEDS: BETAXOLOL 0.5% EACH EYE SCH ×2 (10:26→22:54)
[2018-07-06] MEDS: Senna/Docusate Sodium 8.6/50 MG Tablet PO SCH ×2 (10:27→22:53)
--- NOTE | 2018-07-06 12:59 | P.PNIM ---
Physical Exam Vital signs: Last Vital Signs Temp 99.5 F 07/06/18 07:56 Pulse 89 07/06/18 07:56 Resp 20 07/06/18 07:56 BP 128/64 07/06/18 07:56 Pulse Ox 94 L 07/06/18 07:56 Intake & Output 07/04/18 07/05/18 07/06/18 07/07/18 06:59 06:59 06:59 06:59 Intake Total 1180 / 1180 2250 / 2250 1040 / 1040 Output Total 1850 / 1850 Balance 1180 / 1180 400 / 400 1040 / 1040 Weight 48.4 kg 45.5 kg 45.3 kg Narrative: GENERAL: elderly woman, cachectic,not in distress. HEENT:not pale,anicteric NECK: No LAD, no JVD CARDIOVASCULAR: Regular rate and rhythm without murmurs, gallops, or rubs. RESPIRATORY: Clear to auscultation. Breath sounds equal bilaterally. No wheezes , rales, or rhonchi. GASTROINTESTINAL: Abdomen nondistended, soft,mild left periumbilical tenderness. Normal active bowel sounds. Firm mobile mass left periumbilical area extending towards LUQ. MUSCULOSKELETAL: Extremities with 2+ edema at ankles and lower legs lt>rt. NEURO: Alert & Oriented x2 to person, place but not to time and situation. Moves all ext x4. Urinary Catheter Management Straight: Cath placed during this visit: yes, but has since been removed by the nurse Insertion date: 07/04/18 Insertion time: 12:15 Removal date: 07/04/18 Removal time: 12:30 Results Labs CBC & Chem 7: 07/02/18 14:30 07/04/18 16:50 Assessment and Plan Plan 87 yo F with h/o TIA, glaucoma, who was brought in by her family friend for wt loss, confusion. Worsening confusion--likely worsening dementia, CT head did not show any acute findings, there is ventriculomegaly likely due to brain atrophy. TSH is normal. B12 done recently was normal as well. MRI brain was negative for metastasis. Likely her symptoms are due to worsening dementia. She was on Memantine before but self discontinued. monitor closely, re-orient. appreciate neurology recs, Namenda started. Weight loss/microcytic Anemia-concern for malignancy. reportedly heme occult was +ve in ER. Hb with a slight decline compared to a couple of months back. appetite is poor. Palpable mass on abdominal exam. -CT abdomen/pelvis results noted multiple masses and lymphadenopathy suggestive of lymphoma vs metastatic disease. MRI brain negative for mets. CT chest ordered. Oncology consult appreciated. Tissue biopsy was ordered for diagnosis. Biopsy done today appreciate palliative care consult Hypoalbuminemia-- likely due to protein calory malnutrition-monitor. Mild edema--likely in the setting of malnutrition-elevate lower extremities. monitor closely. DVT ppx--SCD for now given concern for hemo occult +ve. Progress Note: Quality VTE Deep Vein Thrombosis/Pulmonary Embolism Present on Admission: No
[2018-07-06] MEDS: Dextrose 5%/NaCl 0.45% Inj 1,000 ML IV.CONT SCH (13:29)
--- NOTE | 2018-07-06 15:40 | P.DS ---
DS: Providers Date of admission: 07/02/18 16:15 Primary care physician: No Primary Care Physician Consults: 07/03/18 11:31 Consult to Neurology Routine Consulting Provider: Beto Greene Reason for Consultation: worsening confusion Notified:: Office Spoke with:: Brandie Date Notified:: 07/03/18 Time Notified:: 11:42 Ordering Provider: SHARON 07/03/18 15:24 Consult to Oncology Routine Consulting Provider: Everett Jennings Reason for Consultation: presented with weight loss, has abdominal masses and lymphadenopathy. kindly evaluate and advise on further mx options. thank you Notified:: Office Spoke with:: Hiwot Date Notified:: 07/03/18 Time Notified:: 15:41 Comments:: Ordering Provider: SHARON 07/05/18 10:03 Consult to Palliative Care Routine Consulting Provider: Angela Correa Reason for Consultation: patient has new diagnosis of intra abdominal malignancy. Patient's son interested in finding out about palliative care/hospice option. Notified:: Service Spoke with:: VERONICA Date Notified:: 07/05/18 Time Notified:: 10:14 Ordering Provider: SHARON 07/06/18 11:30 HUB Only Consult Order Routine Consulting Provider: [facility] Reason for Consultation: FOR POSSIBLE DC TOMORROW Brief History from admission: 87 yo F with h/o TIA, glaucoma, who was brought to ER by her family friend(Gely Alejandra--who provided the history) for evaluation of worsening confusion x2 months and weight loss, poor appetite--now refusing to eat. Patient reportedly had been on Memantine for a couple of weeks this year but stopped because it was bursting her head. She has been getting more confused, getting lost within her apartment building. She has been forgetful as well. This has progressively worsened, but notably so in the last 2 months. Patient also has been having poor appetite, recently refusing to eat, and has lost a lot of weight over the last 6 months. Her ankles also noted to be swelling. She has not been walking much, her friend offered her a cane which she refused. Patient has no specific complaints except for some nausea. On presentation to ER, patient noted to be mildly anemic hb 9.3 compared to 10.3 in 02/2018, hypoalbuminemia of 2.3. CT head-ventriculomegaly suggestive of central atrophy vs hydrocephalus. no acute findings noted. ER physician did heme occult test and was incidentally found to be positive. DS: Diagnosis Discharge Diagnosis (1) Mesenteric mass: Status: Acute (2) Dementia: Status: Acute (3) Debility: Status: Acute DS: Summary ISSUES ADDRESSED DURING THIS HOSPITALIZATION: Worsening confusion--likely worsening dementia. CT head did not show any acute findings, there is ventriculomegaly likely due to brain atrophy. TSH is normal. B12 done recently was normal as well. MRI brain was negative for metastasis. Likely her symptoms are due to worsening dementia. She was on Memantine before but self discontinued. monitor closely, re-orient. She was seen by the neurologist who recommended starting Namenda. Weight loss/abdominal mass/microcytic Anemia-concern for malignancy. reportedly heme occult was +ve in ER. Hb with a slight decline compared to a couple of months back. appetite is poor. Palpable mass on abdominal exam. CT abdomen/pelvis results noted multiple masses and lymphadenopathy suggestive of lymphoma vs metastatic disease. MRI brain and CT chest were negative for metastasis. Oncology consulted and biopsy of the mass was done by IR. Patient will need to follow up with the oncologist in the clinic Patient was also seen by palliative care consult Hypoalbuminemia-- likely due to protein calory malnutrition. Mild edema--likely in the setting of malnutrition-elevate lower extremities. monitor closely. Debility-patient evaluated by PT/OT, rehab was recommended. Time Spent with Patient Total time spent providing and/or coordinating discharge services:>30 minutes Quality: VTE Deep Vein Thrombosis/Pulmonary Embolism Present on Admission: No Exam Narrative Exam Narrative: GENERAL: elderly woman, cachectic,not in distress. HEENT:not pale,anicteric NECK: No LAD, no JVD CARDIOVASCULAR: Regular rate and rhythm without murmurs, gallops, or rubs. RESPIRATORY: Clear to auscultation. Breath sounds equal bilaterally. No wheezes , rales, or rhonchi. GASTROINTESTINAL: Abdomen nondistended, soft,mild left periumbilical tenderness. Normal active bowel sounds. Firm mobile mass left periumbilical area extending towards LUQ. MUSCULOSKELETAL: Extremities with 2+ edema at ankles and lower legs lt>rt. NEURO: Alert & Oriented x2 to person, place but not to time and situation. Moves all ext x4. Results Impressions ITS Impressions Chest X-Ray 07/02/18 14:33 CONCLUSION: No acute cardiopulmonary abnormality is identified. Head CT 07/02/18 14:33 CONCLUSION: 1. Ventriculomegaly is noted suggestive of central cerebral atrophy versus hydrocephalus. Clinical correlation is recommended. 2. No acute infarct, acute hemorrhage, midline shift or extra-axial fluid collections are noted. . Head MRI 07/03/18 00:00 CONCLUSION: 1. Stable diffuse cerebral atrophy. 2. Mild periventricular and subcortical white matter small vessel ischemic changes bilaterally. 3. No acute infarct, acute hemorrhage, midline shift or extra-axial fluid collections. 4. No abnormal enhancing lesion noted. Abdomen/Pelvis CT 07/03/18 05:59 CONCLUSION: 1. Extensive ill-defined mesenteric mass is noted within the upper abdomen measuring 12.3 cm in greatest dimension. Soft tissue masses are also noted within the epicardial fat bilaterally measuring 2.9 cm on the left and 3.7 and 2.6 cm on the right. Extensive retroperitoneal lymphadenopathy is noted with the payal mass measuring 8.0 cm transverse by 7.0 cm AP dimension. Retroperitoneal payal mass encircles the renal arteries bilaterally and narrows the left renal vein. The findings are suggestive of lymphoma or metastatic lymphadenopathy. 2. Extensive mesenteric mass is noted involving the tail of the pancreas. It is difficult to determine if the mass arises from the pancreas or extends into the region of the tail the pancreas. The main pancreatic duct is mildly dilated. 3. 2 cm mass in the expected region of the head of the pancreas. 4. Small bilateral pleural effusions with adjacent compressive atelectasis. 5. Possible infiltration or rupture of the spleen which is surrounded by mesenteric mass. 6. Mild diffuse urinary bladder wall thickening. 7. Two left renal cysts. 8. Degenerative changes and scoliosis of the lumbar spine. Abdomen Biopsy CT 07/05/18 00:00 CONCLUSION: 1. Uncomplicated CT guided biopsy. Chest CT 07/05/18 06:52 CONCLUSION: 1. Trace small pleural effusions without obvious metastatic disease. 2. Extensive retroperitoneal and intraperitoneal adenopathy seen in the upper abdomen. Discharge Plan Discharge Disposition Patient Disposition: Discharge to SNF Discharge Condition Condition: Fair Discharge Order Discharge Orders: Discharge Order (Routine); Ordered 07/06/18 Ordered By: Symone Olmos Discharge Details Anticipated Discharge Date: 12/22/18 Physicians Team Primary Care Provider: Primary Care Physici,No Attending Provider: Symone Olmos Other Providers: Beto Greene ; Everett Jennings ; Angela Correa ; [facility],[place] Rxs /Orders / Referrals /Forms Prescriptions: New memantine [Namenda] 5 mg Tablet 5 mg PO BID Qty: 60 RF: 11 Continue latanoprost 0.005 % Drops 1 drp OPHTHALMIC (EYE) QPM RF: 0 betaxolol 0.5 % Drops 1 drp OPHTHALMIC (EYE) BID RF: 0 Referrals: Primary Care Moon Alfonso [Primary Care Provider] - See Instructions ( Please call the physician's office to book the appointment to be seen within [].) Discharge Interventions Interventions: Discharge Planning - Case Management Last Done: 07/06/18 15:39 Status ED Status: Left Department
[2018-07-06] MEDS: Latanoprost 0.005% Opth Drops 2.5 ML Bottle EACH EYE SCH (22:55)
[2018-07-07] MEDS: Dextrose 5%/NaCl 0.45% Inj 1,000 ML IV.CONT SCH (05:18)
[2018-07-07] MEDS: Senna/Docusate Sodium 8.6/50 MG Tablet PO SCH (08:00)
[2018-07-07] MEDS: BETAXOLOL 0.5% EACH EYE SCH (08:01)
== END 2018-07-07 13:19 | DRG 375 ==
LOC: PHED 12:57 → PHEDA 16:15 → PH3 17:57
PROVIDERS: ADMIT Hospitalist; ATTEND Hospitalist
DX: R19.5 Other fecal abnormalities; D50.0 Iron deficiency anemia secondary to blood loss (chronic); R59.0 Localized enlarged lymph nodes; R60.9 Edema, unspecified; Z86.73 Personal history of transient ischemic attack (TIA), and cerebral infarction without residual deficits; F02.80 Dementia in other diseases classified elsewhere, unspecified severity, without behavioral disturbance, psychotic disturbance, mood disturbance, and anxiety; G30.9 Alzheimer's disease, unspecified; M41.9 Scoliosis, unspecified; R53.81 Other malaise; H40.9 Unspecified glaucoma; G93.89 Other specified disorders of brain; R41.0 Disorientation, unspecified; E88.09 Other disorders of plasma-protein metabolism, not elsewhere classified; J98.11 Atelectasis; R11.0 Nausea; Z87.891 Personal history of nicotine dependence; E46 Unspecified protein-calorie malnutrition; C76.2 Malignant neoplasm of abdomen; G31.9 Degenerative disease of nervous system, unspecified; N28.1 Cyst of kidney, acquired; R64 Cachexia; R19.00 Intra-abdominal and pelvic swelling, mass and lump, unspecified site; Z68.1 Body mass index [BMI] 19.9 or less, adult
CPT/HCPCS: 49180; 51798; 70450; 70553; 71010; 71045; 71260; 74177; 76360; 77012; 80048; 80053; 81001; 82272; 82378; 82607; 83520; 83540; 83550; 83690; 83735; 83880; 84443; 84484; 85025; 85610; 85730; 86301; 88184; 88185; 88305; 88307; 88377; 93005; 97162; 97166; 99152; 99285; A9585; J2250; J2405; J3010; Q9963; Q9967